=== PATIENT | male | born 1940 | race Caucasian/White ===

== ENCOUNTER 2020-07-24 20:28 | Inpatient (IN) | payer OTHER ==
--- OUTSIDE RECORDS SUMMARY | 2020-07-24 20:31 | XMS REPORT | Summary of Care ---
:1940 Author Organization [facility] Address [address] [place] [id number] Care Team Providers Name Role Phone Unavailable Primary Care Provider Unavailable Reason for Visit Reason Comments LAB Exposure Cough Body Aches Encounter Details Date Type Department Care Team Description 07/18/2020 Laboratory Only [facility] Hamida Dobbs, UNDERCOVER AGENT [address] [facility] [address] [place] [address] Exposure to Medicine - [facility], Adc Fam Pob I SARS-associated [address] [facility] coronaviru s ([address] Drive Dx) [place] [address] Allergies Not on Filedocumented as of this encounter (statuses as of 07/18/2020) Medications Not on filedocumented as of this encounter (statuses as of 07/18/2020) Active Problems Not on filedocumented as of this encounter (statuses as of 07/18/2020) Social History Tobacco Use Types Packs/Day Years Used Date Never Assessed Sex Assigned at Date Recorded Not on file COVID-19 Exposure Response Date Recorded In the last month, have you been in contact with Yes 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 documented as of this encounter Last Filed Vital Signs Not on filedocumented in this encounter Nursing Notes Lauren Bah LVN - 07/18/2020 4:20 PM CSTJeosorio Chavez is a 80 year old male here for COVID Screening with a Nasopharyngeal Swab All droplet and contact precautions taken with appropriate PPE worn while interacting with patient. ? Goggles ? N95 Mask ? Gloves ? Gown RR 17 Pulse Ox 97% Patient educated on plan of care for visit, swabbing technique, risks and benefits of test and length of time to receive results. Verbal consent obtained to perform test. CDC Fact Sheet for Patients nCoV Diagnostic Panel dated 09/29/2019 and Factsheet What to Do if Sick with COVID 19 09/09/19 provided. Patient swabbed per appropriate nasopharyngeal technique, and patient tolerated well. Patient was discharged from the testing clinic in stable condition. 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 documented in this encounter Plan of Treatment Name Type Priority Associated Diagnoses Order S chedule COVID-19 (MOLECULAR LAB Routine Exposure to SARS-asso ciated Ordered: 07/18/2020 TESTING coronavirus NUCLEIC ACID AMPLIFICATION) Health Maintenance Due Date Last Done Comments Depression Screening 1953 DTaP,Tdap,and Td Vaccines (1 - Tdap) 1960 Zoster Recombinant Vaccine (SHINGRIX) (1 of 2) 1991 Medicare Wellness Visit 2006 PNEUMOCOCCAL VACCINES 65+ (1 of 1 - PPSV23) 2006 INFLUENZA VACCINE (#1) 2020 documented as of this encounter Results Not on filedocumented in this encounter Visit Diagnoses Diagnosis Exposure to SARS-associated coronavirus - Primary documented in this encounter Additional Health Concerns Infection Onset Date Last Indicated Resolved Time COVID-19 Rule Out 07/18/2020 07/18/2020 documented as of this encounter Insurance Payer Benefit Plan Subscriber ID Effective Phone Address Typ e / Group Dates AETNA - AETNA [id number] 2020-Prese P O BOX Medic are Adv MANAGED MEDICARE ADV nt [id number] [place] [address] documented as of this encounter
--- OUTSIDE RECORDS SUMMARY | 2020-07-24 20:31 | XMS REPORT | Continuity of Care Document ---
:1940 Author Organization [facility] t Address [address] [place] [address] Care Team Providers Name Role Phone Lab, Fam Pob I Attending Clinician Unavailable Doctor Unassigned, Name Attending Clinician Unavailable Problems This patient has no known problems. Allergies, Adverse Reactions, Alerts This patient has no known allergies or adverse reactions. Medications This patient has no known medications. Procedures This patient has no known procedures. Encounters Start End Encounter Admission Attending Care Care Encounter Source Date/Time Date/Time Type Type Clinicians Facility Department ID 2020-07-18 2020-07-18 Laboratory Lab, [facility] [id number] 16:03:52 16:23:52 Only Fam Pob I Health [id number] [place] [id number] [place] [phone] [address] 2020-07-18 2020-07-18 Letter Doctor CHRIS [id number] 00:00:00 00:00:00 (Out) UnassignedAMARA [id number] [place] [facility] [phone] 044 Results This patient has no known results.
--- OUTSIDE RECORDS SUMMARY | 2020-07-24 20:31 | XMS REPORT | Summary of Care ---
:1940 Author Organization [facility] Address [address] [place] [address] Care Team Providers Name Role Phone Unavailable Primary Care Provider Unavailable Encounter Details Date Type Department Care Team Description 07/18/2020 Letter (Out) [facility] Instap[employer] Message s Doctor Unassigned, No [address] [facility] [place] [phone] [facility] [phone] [place] [address] Allergies Not on Filedocumented as of this encounter (statuses as of 07/18/2020) Medications Not on filedocumented as of this encounter (statuses as of 07/18/2020) Active Problems Not on filedocumented as of this encounter (statuses as of 07/18/2020) Social History Tobacco Use Types Packs/Day Years Used Date Never Assessed Sex Assigned at Date Recorded Not on file documented as of this encounter Last Filed Vital Signs Not on filedocumented in this encounter Plan of Treatment Date Type Specialty Care Team Description 07/18/2020 Laboratory Only [facility] Hamida Lamb, FN P [address] [facility] [address] [place], [place] [id number] Exposure to Lab, Adc Fam Pob I SARS-associated coronavirus (Pr imary Dx) Health Maintenance Due Date Last Done Comments Depression Screening 1953 DTaP,Tdap,and Td Vaccines (1 - Tdap) 1960 Zoster Recombinant Vaccine (SHINGRIX) (1 of 2) 1991 Medicare Wellness Visit 2006 PNEUMOCOCCAL VACCINES 65+ (1 of 1 - PPSV23) 2006 INFLUENZA VACCINE (#1) 2020 documented as of this encounter Results Not on filedocumented in this encounter Additional Health Concerns Infection Onset Date Last Indicated Resolved Time COVID-19 Rule Out 07/18/2020 07/18/2020 documented as of this encounter Insurance Payer Benefit Plan Subscriber ID Effective Phone Address Typ e / Group Dates AETNA - AETNA [id number] 2020-Prese P O BOX Medic are Adv MANAGED MEDICARE ADV nt [id number] [place] [address] documented as of this encounter
[2020-07-24] MEDS ORDERED: ALBUTEROL INHALER 60 PUFF/8 GM IH ONE (22:04)
[2020-07-24 23:37] LABS: Basophils % 0.2 % (0-1.3); Hematocrit 45.5 % (39.6-49.0); Lymphocytes % 9.9 % (15.3-44.8); MPV 8.7 fL (7.6-11.3); RBC Red Blood Cell Count 5.08 M/uL (4.33-5.43)
[2020-07-24 23:39] LABS: Protime INR 1.23
[2020-07-24 23:51] LABS: ALT/SGPT 23 U/L (12-78); AST/SGOT 35 U/L (15-37); Albumin 2.9 g/dL (3.4-5.0); Alkaline Phosphatase 73 U/L (45-117); BUN Blood Urea Nitrogen 22 mg/dL (7-18); Bicarbonate 28 mmol/L (21-32); Bilirubin Direct 0.2 mg/dL (0-0.2); Bilirubin Total 0.6 mg/dL (0.2-1.0); Glucose Level 102 mg/dL (74-106); Magnesium 2.5 mg/dL (1.8-2.4); NT PRO-BNP 506 pg/mL (<450); Potassium 4.1 mmol/L (3.5-5.1); Protein, Total 7.3 g/dL (6.4-8.2); Sodium Level 134 mmol/L (136-145); Troponin (Emerg Dept Use Only) < 0.02 ng/mL (0.0-0.045)
--- NOTE | 2020-07-25 00:04 | EDPHYS ---
Physician Documentation [facility] Name: Ted Chavez Age: 80 yrs Sex: Male : 1940 Arrival Date: 07/24/2020 Time: 20:44 Bed 14 Private MD: Dougie Johnson ED Physician Shmuel Conrad HPI: 07/24 22:07 This 80 yrs old Male presents to ER via Wheelchair with complaints of mh7 Breathing Difficulty, +COVID. 22:07 The patient has shortness of breath at rest, with light activity. mh7 22:07 Onset: The symptoms/episode began/occurred 3 day(s) ago. Duration: The symptoms are mh7 continuous, and are steadily getting worse. The patient's shortness of breath is aggravated by coughing, light activity, is alleviated by nothing. Associated signs and symptoms: Pertinent positives: non-productive cough, Pertinent negatives: chest pain, productive cough, diaphoresis, dizziness, fever, hemoptysis, loss of consciousness, nausea, numbness in extremities, visual changes, vomiting. Severity of symptoms: At their worst the symptoms were moderate yesterday, in the emergency department the symptoms are unchanged. The patient has been recently seen by a physician: the patient's primary care provider. Tested positive for COVID one week ago. Historical: - Allergies: 21:11 Oxycodone; 21:11 Phenergan; 21:11 Tylenol-Codeine #3; - Home Meds: 21:13 Sotalol Oral [Active]; Eliquis oral oral [Active]; - PMHx: 21:13 Cancer; Afib; - PSHx: 21:13 Cholecystectomy; Prostetectomy; - Immunization history:: Adult Immunizations up to date. - Social history:: Smoking status: Patient/guardian denies using. ROS: 22:07 Constitutional: Negative for fever, chills, and weight loss, Eyes: Negative for injury, mh7 pain, redness, and discharge, ENT: Negative for injury, pain, and discharge, Neck: Negative for injury, pain, and swelling, Cardiovascular: Negative for chest pain, palpitations, and edema, Abdomen/GI: Negative for abdominal pain, nausea, vomiting, diarrhea, and constipation, Back: Negative for injury and pain, : Negative for injury, bleeding, discharge, and swelling, MS/Extremity: Negative for injury and deformity, Skin: Negative for injury, rash, and discoloration, Neuro: Negative for headache, weakness, numbness, tingling, and seizure, Psych: Negative for depression, anxiety, suicide ideation, homicidal ideation, and hallucinations, Allergy/Immunology: Negative for hives, rash, and allergies, Endocrine: Negative for neck swelling, polydipsia, polyuria, polyphagia, and marked weight changes, Hematologic/Lymphatic: Negative for swollen nodes, abnormal bleeding, and unusual bruising. Exam: 22:07 Constitutional: This is a well developed, well nourished patient who is awake, alert, mh7 and in no acute distress. Head/Face: Normocephalic, atraumatic. Eyes: Pupils equal round and reactive to light, extra-ocular motions intact. Lids and lashes normal. Conjunctiva and sclera are non-icteric and not injected. Cornea within normal limits. Periorbital areas with no swelling, redness, or edema. ENT: Nares patent. No nasal discharge, no septal abnormalities noted. Tympanic membranes are normal and external auditory canals are clear. Oropharynx with no redness, swelling, or masses, exudates, or evidence of obstruction, uvula midline. Mucous membranes moist. Neck: Trachea midline, no thyromegaly or masses palpated, and no cervical lymphadenopathy. Supple, full range of motion without nuchal rigidity, or vertebral point tenderness. No Meningismus. Chest/axilla: Normal chest wall appearance and motion. Nontender with no deformity. No lesions are appreciated. 22:07 Abdomen/GI: Soft, non-tender, with normal bowel sounds. No distension or tympany. No guarding or rebound. No evidence of tenderness throughout. Back: No spinal tenderness. No costovertebral tenderness. Full range of motion. Skin: Warm, dry with normal turgor. Normal color with no rashes, no lesions, and no evidence of cellulitis. MS/ Extremity: Pulses equal, no cyanosis. Neurovascular intact. Full, normal range of motion. Neuro: Awake and alert, GCS 15, oriented to person, place, time, and situation. Cranial nerves II-XII grossly intact. Motor strength 5/5 in all extremities. Sensory grossly intact. Cerebellar exam normal. Normal gait. Psych: Awake, alert, with orientation to person, place and time. Behavior, mood, and affect are within normal limits. 22:07 Cardiovascular: Rate: normal, Rhythm: irregularly irregular, Pulses: no pulse deficits are appreciated, Heart sounds: normal, normal S1and S2, Edema: is not appreciated, JVD: is not appreciated. 22:07 Respiratory: the patient does not display signs of respiratory distress, Respirations: prolonged exhalation, that is mild, Breath sounds: rales, that are moderate, are scattered, rhonchi, that are mild, are scattered, Respiratory rate: 20 Vital Signs: 20:45 BP 123 / 82; Pulse 81; Resp 20; Temp 98.3; Pulse Ox 95% ; Weight 129.27 kg; Height 6 ar5 ft. 4 in. (193.04 cm); Pain 0/10; 22:00 BP 124 / 85; Pulse 77; Resp 18; Pulse Ox 92% on R/A; wh 23:00 BP 134 / 87; Pulse 79; Resp 18; Pulse Ox 90% on 2 lpm NC; 07/25 00:30 BP 116 / 95; Pulse 84; Resp 18; Pulse Ox 96% on 2 lpm NC; 07/24 20:45 Body Mass Index 34.69 (129.27 kg, 193.04 cm) ar5 MDM: 00:00 Differential diagnosis: Anemia Anxiety Reaction asthma, Bronchitis CHF exacerbation, mh7 Chronic Obstructive Pulmonary Disease Myocardial Infarction pneumonia, pulmonary edema, reactive airway disease. Data reviewed: vital signs, nurses notes, lab test result(s), cardiac enzymes, CBC, electrolytes, urinalysis, EKG, radiologic studies, plain films. Data interpreted: Pulse oximetry: on room air is 88 %. Interpretation: hypoxia. Plan: O2 by NC applied. Counseling: I had a detailed discussion with the patient and/or guardian regarding: the historical points, exam findings, and any diagnostic results supporting the discharge/admit diagnosis, lab results, radiology results, the need for further work-up and treatment in the hospital. Response to treatment: the patient's symptoms have mildly improved after treatment. 00:02 Patient medically screened. [facility] 07/24 21:34 Order name: Basic Metabolic Panel; Complete Time: 23:55 [facility] 07/24 21:34 Order name: CBC with Diff; Complete Time: 23:55 [facility] 07/24 21:34 Order name: LFT's; Complete Time: 23:55 [facility] 07/24 21:34 Order name: Magnesium; Complete Time: 23:55 [facility] 07/24 21:34 Order name: NT PRO-BNP; Complete Time: 23:55 [facility] 07/24 21:34 Order name: PT-INR; Complete Time: 23:55 [facility] 07/24 21:34 Order name: Troponin (emerg Dept Use Only); Complete Time: 23:55 [facility] 07/24 23:57 Order name: Blood Culture Adult (2) [facility] 07/24 23:57 Order name: Lactate; Complete Time: 19:35 [facility] 07/24 23:57 Order name: Procalcitonin; Complete Time: 19:35 [facility] 07/25 00:24 Order name: C-Reactive Protein [facility] 07/25 00:24 Order name: C-Reactive Protein [facility] 07/25 00:24 Order name: Ferritin [facility] 07/25 00:24 Order name: Ferritin [facility] 07/24 21:34 Order name: XRAY Chest (1 view); Complete Time: 19:35 [facility] 07/24 21:34 Order name: EKG; Complete Time: 21:35 [facility] 07/24 21:34 Order name: Cardiac monitoring; Complete Time: 22:09 [facility] 07/24 21:34 Order name: EKG - Nurse/Tech; Complete Time: 22:09 [facility] 07/25 00:24 Order name: CONS Physician Consult [facility] 07/25 00:24 Order name: Heart Healthy [facility] 07/25 00:24 Order name: Lipid Profile [facility] 07/25 00:24 Order name: Lipid Profile [facility] 07/25 10:39 Order name: CORONAVIRUS [facility] 07/25 10:53 Order name: C-Reactive Protein; Complete Time: 19:35 [facility] 07/25 10:53 Order name: Ferritin; Complete Time: 19:35 [facility] 07/25 11:19 Order name: SARS-COV-2 RT PCR; Complete Time: 19:35 [facility] 07/24 21:34 Order name: IV Saline Lock; Complete Time: 22:09 [facility] 07/24 21:34 Order name: Labs collected and sent; Complete Time: 22:09 [facility] 07/24 21:34 Order name: O2 Per Protocol; Complete Time: 22:09 [facility] 07/24 21:34 Order name: O2 Sat Monitoring; Complete Time: : [facility] Administered Medications: 07/24 22:08 Drug: Albuterol HFA Inhaler 2 puffs Route: Inhalation; 07/25 01:04 Follow up: Response: No adverse reaction 00:57 Drug: Rocephin - (cefTRIAXone) 1 grams Route: IVPB; Infused Over: 30 mins; Site: left antecubital; 01:04 Follow up: Response: No adverse reaction; IV Status: Completed infusion 01:00 Drug: Decadron - Dexamethasone 10 mg Route: IVP; Site: left antecubital; 01:04 Follow up: Response: No adverse reaction 01:03 Drug: Zithromax 500 mg Route: IVPB; Infused Over: 1 hrs; Site: left antecubital; 01:04 Follow up: Response: No adverse reaction; IV Status: Infusion continued upon admission Disposition: 07/25/20 00:02 Hospitalization ordered by Dougie Johnson for Inpatient Admission. Preliminary diagnosis are COVID Pneumonia, Hypoxia. - Bed requested for Telemetry/MedSurg (Inpatient). - Status is Inpatient Admission. 2 - Condition is Stable. - Problem is new. - Symptoms have improved. Signatures: Dispatcher [employer] EDMaria Luisa Duncan RN RN Maria Elean Mae Shannon Ennis RN RN [facility] Shmuel Conrad MD MD 7 Corrections: (The following items were deleted from the chart) 00:44 00:02 Hospitalization Ordered by Dougie Johnson MD for Observation. Preliminary diagnosis cg is COVID Pneumonia; Hypoxia. Bed requested for Telemetry/MedSurg (observation). Status is Observation. Condition is Stable. Problem is new. Symptoms have improved. [facility] 01:05 00:44 07/25/2020 00:02 Hospitalization Ordered by Dougie Johnson MD for Observation. 7 Preliminary diagnosis is COVID Pneumonia; Hypoxia. Bed requested for [facility] ER HOLD. Status is Observation. Condition is Stable. Problem is new. Symptoms have improved. 20:15 01:05 07/25/2020 00:02 Hospitalization Ordered by Dougie Johnson MD for Inpatient Admission. Preliminary diagnosis is COVID Pneumonia; Hypoxia. Bed requested for [facility] ER HOLD. Status is Inpatient Admission. Condition is Stable. Problem is new. Symptoms have improved. mh7 20:55 20:15 07/25/2020 00:02 Hospitalization Ordered by Dougie Johnson MD for Inpatient ll2 Admission. Preliminary diagnosis is COVID Pneumonia; Hypoxia. Bed requested for Telemetry/MedSurg (Inpatient). Status is Inpatient Admission. Condition is Stable. Problem is new. Symptoms have improved.
--- NOTE | 2020-07-25 00:04 | ER ---
Nurse's Notes [facility] Name: Ted Chavez Age: 80 yrs Sex: Male : 1940 Arrival Date: 07/24/2020 Time: 20:44 Bed 14 Private MD: Dougie Johnson Diagnosis: COVID Pneumonia;Hypoxia Presentation: 07/24 21:08 Chief complaint: Patient states: was diagnosed Covid Positive last Monday at [facility]. Now C/O SOB and low O2 at [facility] at 86-87% in RA. Coronavirus screen: Client presents with at least one sign or symptom that may indicate coronavirus-19. Standard/surgical mask placed on the client. Provider contacted for isolation considerations. Client reports previous positive COVID test result. Ebola Screen: Patient negative for fever greater than or equal to 101.5 degrees Fahrenheit, and additional compatible Ebola Virus Disease symptoms Patient denies exposure to infectious person. Initial Sepsis Screen: Does the patient meet any 2 criteria? No. Patient's initial sepsis screen is negative. Does the patient have a suspected source of infection? Yes: Other: COvid Positive. Risk Assessment: Do you want to hurt yourself or someone else? Patient reports no desire to harm self or others. Onset of symptoms was July 24, 2020. 21:08 Method Of Arrival: Wheelchair 21:08 Acuity: KJ 3 Triage Assessment: 21:14 Respiratory: Reports shortness of breath cough that is Onset: The symptoms/episode wh began/occurred gradually, the patient reports symptoms have resolved. Historical: - Allergies: 21:11 Oxycodone; 21:11 Phenergan; 21:11 Tylenol-Codeine #3; - Home Meds: 21:13 Sotalol Oral [Active]; Eliquis oral oral [Active]; - PMHx: 21:13 Cancer; Afib; - PSHx: 21:13 Cholecystectomy; Prostetectomy; - Immunization history:: Adult Immunizations up to date. - Social history:: Smoking status: Patient/guardian denies using. Screenin:14 Abuse screen: Denies threats or abuse. Denies injuries from another. Nutritional screening: No deficits noted. Tuberculosis screening: No symptoms or risk factors identified. Fall Risk None identified. Assessment: 21:14 General: Appears in no apparent distress. Behavior is calm, cooperative, appropriate wh for age. Pain: Denies pain. Neuro: Level of Consciousness is awake, alert, obeys commands, Oriented to person, place, time, situation, Appropriate for age. Cardiovascular: Rhythm is regular. Respiratory: Airway is patent Respiratory effort is even, unlabored, Respiratory pattern is regular, symmetrical, Breath sounds with rhonchi bilaterally. GI: Abdomen is non-distended. : No signs and/or symptoms were reported regarding the genitourinary system. EENT: No signs and/or symptoms were reported regarding the EENT system. Derm: Skin is intact, is healthy with good turgor, Skin is pink, warm \T\ dry. normal. Musculoskeletal: Circulation, motion, and sensation intact. 22:45 Reassessment: Patient appears in no apparent distress at this time. No changes from previously documented assessment. Patient and/or family updated on plan of care and expected duration. Pain level reassessed. Patient is alert, oriented x 3, equal unlabored respirations, skin warm/dry/pink. 07/25 00:00 Reassessment: Patient appears in no apparent distress at this time. Patient and/or family updated on plan of care and expected duration. Pain level reassessed. Patient is alert, oriented x 3, equal unlabored respirations, skin warm/dry/pink. 20:22 Reassessment: Patient and/or family updated on plan of care and expected duration. Pain ll2 level reassessed. Patient is alert, oriented x 3, equal unlabored respirations, skin warm/dry/pink. attempted to call report to nurse, advised by phil i'd have to be called back. 20:48 Reassessment: report given to PRINCESS shirley. ll2 Vital Signs: 07/24 20:45 BP 123 / 82; Pulse 81; Resp 20; Temp 98.3; Pulse Ox 95% ; Weight 129.27 kg; Height 6 ar5 ft. 4 in. (193.04 cm); Pain 0/10; 22:00 BP 124 / 85; Pulse 77; Resp 18; Pulse Ox 92% on R/A; wh 23:00 BP 134 / 87; Pulse 79; Resp 18; Pulse Ox 90% on 2 lpm NC; 07/25 00:30 BP 116 / 95; Pulse 84; Resp 18; Pulse Ox 96% on 2 lpm NC; 07/24 20:45 Body Mass Index 34.69 (129.27 kg, 193.04 cm) ar5 ED Course: 07/24 20:44 Patient arrived in ED. es 20:44 Dougie Johnson MD is Private Physician. es 20:52 Maria Elena Mae is Primary Nurse. 20:58 Shmuel Conrad MD is Attending Physician. 7 21:10 Triage completed. 21:15 Patient has correct armband on for positive identification. Placed in gown. Bed in low wh position. Call light in reach. Side rails up X 1. phototypesetting equipment monitor on. Pulse ox on. NIBP on. 21:15 Arm band placed on right wrist. 21:48 XRAY Chest (1 view) In Process Unspecified. EDKS 07/25 00:01 Dougie Johnson MD is Hospitalizing Provider. 7 01:05 No provider procedures requiring assistance completed. Patient admitted, IV remains in place. Administered Medications: 07/24 22:08 Drug: Albuterol HFA Inhaler 2 puffs Route: Inhalation; 07/25 01:04 Follow up: Response: No adverse reaction 00:57 Drug: Rocephin - (cefTRIAXone) 1 grams Route: IVPB; Infused Over: 30 mins; Site: left antecubital; 01:04 Follow up: Response: No adverse reaction; IV Status: Completed infusion 01:00 Drug: Decadron - Dexamethasone 10 mg Route: IVP; Site: left antecubital; 01:04 Follow up: Response: No adverse reaction 01:03 Drug: Zithromax 500 mg Route: IVPB; Infused Over: 1 hrs; Site: left antecubital; 01:04 Follow up: Response: No adverse reaction; IV Status: Infusion continued upon admission Outcome: 00:02 Decision to Hospitalize by Provider. 7 01:05 Admitted to ER Hold. Please see [facility] for further documentation. 01:05 Condition: stable 01:05 Instructed on the need for admit. 20:55 Patient left the ED. ll2 Signatures: Dispatcher [employer] EDKS Mercedes Rivers Maria Elena Mae Zuri Jose ar5 Shannon Ennis RN RN ll2 Shmuel Conrad MD MD mh7 Corrections: (The following items were deleted from the chart) 02:01 07/24 21:14 Respiratory: Airway is patent Respiratory effort is even, unlabored, wh Respiratory pattern is regular, symmetrical, Breath sounds are clear bilaterally. wh
[2020-07-25] MEDS ORDERED: ONDANSETRON 4 MG/2 ML VIAL IV PRN (00:11)
[2020-07-25] MEDS ORDERED: AZITHROMYCIN 500 MG INJ IVPB ONE (00:21)
[2020-07-25] MEDS ORDERED: NA CHLORIDE 0.9% 250 ML ONE (00:22)
[2020-07-25] MEDS ORDERED: CEFTRIAXONE/SWI 1gm 1 GM/10 ML SYR ONE (00:22)
[2020-07-25] MEDS ORDERED: dexAMETHasone 10 MG/ML VIAL ONE (00:22)
[2020-07-25 01:53] VITALS: BMI 34.7
[2020-07-25] MEDS ORDERED: VITAMIN D 1000 UNIT TAB ONE (08:55)
[2020-07-25] MEDS ORDERED: ZINC SULFATE 220 MG CAP ONE (08:55)
[2020-07-25] MEDS ORDERED: ASCORBIC ACID 500 MG TABLET ONE ×2 (08:56→13:37)
[2020-07-25] MEDS ORDERED: METHYLPREDNISOLONE 40 MG INJ ONE ×2 (08:56→13:37)
[2020-07-25] MEDS: METHYLPREDNISOLONE 40 MG INJ IV SCH ×3 (09:00→22:06)
[2020-07-25] MEDS: ASCORBIC ACID 500 MG TABLET PO SCH ×3 (09:00→22:07)
[2020-07-25] MEDS: VITAMIN D 1000 UNIT TAB PO SCH (09:00)
[2020-07-25] MEDS: ZINC SULFATE 220 MG CAP PO SCH (09:00)
[2020-07-25] MEDS: SOTALOL HCL 80 MG TAB PO SCH ×2 (09:44→22:07)
[2020-07-25] MEDS: APIXABAN 5 MG TABLET PO SCH ×2 (10:00→22:07)
[2020-07-25] MEDS ORDERED: APIXABAN 5 MG TABLET ONE (10:24)
[2020-07-25 10:53] LABS: C-Reactive Protein 64.6 mg/L (<3.00); Ferritin 264.3 ng/mL (26-388)
[2020-07-25] MEDS: AZITHROMYCIN IV 250 MG in NA CHLORIDE 0.9% 250 ML IVPB SCH (13:00)
--- NOTE | 2020-07-25 13:03 | HP ---
Date of Admission: 07/25/2020 LAXMI/MODL Voice ID: [id number]
--- NOTE | 2020-07-25 13:27 | HP ---
Date of Admission: 07/25/2020 Chief Complaint: Shortness of breath. History Of Present Illness: This is a 80-year-old very pleasant male patient who got exposed to COVID-19 and acquired this infection. He had his COVID-19 test done on July 18, 2020, and it came back positive. He started to have symptoms about 14-15 days ago. He was evaluated via tele visit on July 21, 2020 and at that time, he had reported his oxygen saturation at home was around 96% or higher. He had cough, congestion, fatigue, weakness, diarrhea, and loss of sense of smell and taste. He was prescribed Z-Juvenal and prednisone and he started to take that. Today will be day #4 of his prednisone. He was doing fine until yesterday evening. He says that his oxygen saturation started to drop into range of 75%-77% associated with complaints of shortness of breath, so he came into emergency room. After he was evaluated he was admitted to the hospital with COVID-19 pneumonia. When I saw him this morning, he was in the emergency room lying in bed not in distress. Feeling better since he came to ER after treatment provided to him so far. Allergies: TO CODEINE CAUSING NAUSEA, VOMITING, XARELTO CAUSING GI BLEEDING, PHENERGAN, DETAILS UNKNOWN, AND OXYCODONE DETAILS UNKNOWN. Medications: At home, he takes Zithromax 250 mg daily, prednisone tapering dose, rosuvastatin 5 mg 2 times a week, Eliquis 5 mg 2 times a day, sotalol 80 mg he takes half a tablet 3 times a day. Review of Systems: Respiratory: As mentioned above. All other systems reviewed and negative. Past Medical History: Significant for type 2 diabetes mellitus, coronary artery disease, atrial fibrillation, hyperlipidemia, prostate cancer, leg edema. Past Surgical History: Tonsillectomy, prostatectomy, cholecystectomy, shoulder surgery. Family History: Father had diabetes. Mother, Alzheimer disease. Social History: Prior history of smoking not at present time. Use of alcohol negative. Physical Examination: Vital Signs: Height 6 feet 4 inches, weight 285 pounds, temperature 97.4, pulse 92, respiratory rate 20, blood pressure 124/78, oxygen saturation 91%. General: Awake, alert, oriented, not in distress. HEENT: Head atraumatic, normocephalic. Conjunctivae nonerythematous. Sclerae white. Mouth, no thrush or edema noted. Ears/Nose, no mass, lesion, discharge noted. Neck: Supple. No JVD, lymph nodes, bruit, thyromegaly noted. Lungs: Minimum basal rales noted in both lung moura. The patient not using any accessory muscles. Heart: Normal heart sounds, no murmur or gallop. Abdomen: Soft, bowel sounds normal. No guarding, rigidity, tenderness, mass, hepatosplenomegaly, distention, or bruit noted. Extremities: No leg edema. No calf tenderness. Skin: No rash, ulcer, cellulitis. Lymphatics: No lymph node enlargement in neck, supraclavicular, infraclavicular region. Neuro: No focal neurological deficit. Chest: Unremarkable. External Genitalia: Deferred. Rectal: Deferred. Laboratory Data: White count 10.1, hemoglobin 15.4, platelets 256, INR 1.23. Sodium 134, potassium 4.1, chloride 101, bicarb 28, BUN 22, creatinine 1.13, glucose 102, magnesium 2.5. Liver function tests unremarkable. Troponin less than 0.02. Procalcitonin less than 0.05. Lactic acid 1.7. Ferritin 264. CRP 64.6. Impression: 1. COVID-19 infection. 2. COVID-19 pneumonia. 3. Acute respiratory failure with hypoxia. 4. Hyponatremia. 5. Atrial fibrillation, paroxysmal. 6. Chronic anticoagulation therapy. 7. Hyperlipidemia. 8. Coronary artery disease. 9. Mixed hyperlipidemia. 10. Prostate cancer. Plan: We will go ahead and admit the patient to hospital for further evaluation and management of this problem. Patient is appropriate for inpatient and is expected to spend 2 midnights in hospital. We will continue home medications per order. We will go ahead and continue oxygen per nasal cannula at this time. He is maintaining adequate oxygenation. We will give him IV steroids and IV Zithromax was started. Continue Eliquis and pulmonary consultation was requested from Dr. Gaspar and I have contacted him requesting initiation of remdesivir therapy. Details and plan of treatment discussed with the patient. LAXMI/MODL Voice ID: [id number] MTDD
--- NOTE | 2020-07-25 13:51 | RAD REPORT ---
EXAM DESCRIPTION: RAD - Chest Single View - 07/24/2020 9:48 pm CLINICAL HISTORY: SOB COMPARISON: None. FINDINGS: Single view of the chest is submitted. Cardiac silhouette is enlarged. There is poorly defined consolidation at each lung base. There is mil d pulmonary vascular engorgement. IMPRESSION: Cardiomegaly with bilateral consolidations. Electronically signed by: Ryan Beckham 07/24/2020 10:31 PM QUANTITATIVE STRATEGY ANALYST Due to temporary technical issues with the PACS/Fluency reporting system, reports are being signed by the in house radiologists without review as a courtesy to insure prompt reporting. The interpreting radiologist is fully responsible for the content of the report.
[2020-07-25] MEDS ORDERED: Remdesivir 200 MG in NA CHLORIDE 0.9% 250 ML IV ONE (17:00)
[2020-07-25] MEDS ORDERED: SOTALOL HCL 80 MG TAB ONE (22:19)
[2020-07-26 07:14] LABS: Albumin 2.6 g/dL (3.4-5.0); Bilirubin Total 0.5 mg/dL (0.2-1.0); C-Reactive Protein 52.8 mg/L (<3.00); Ferritin 289.8 ng/mL (26-388); Potassium 3.5 mmol/L (3.5-5.1); Protein, Total 6.9 g/dL (6.4-8.2)
[2020-07-26] MEDS ORDERED: GLUCAGON 1 MG/VIAL IM PRN (08:44)
[2020-07-26] MEDS ORDERED: D50W 25 GM/50 ML SYRINGE IV PRN (08:44)
[2020-07-26] MEDS: SOTALOL HCL 80 MG TAB PO SCH ×2 (09:00→21:49)
[2020-07-26] MEDS: THIAMINE HCL 100 MG TABLET PO SCH (09:43)
[2020-07-26] MEDS: ZINC SULFATE 220 MG CAP PO SCH (09:43)
[2020-07-26] MEDS: VITAMIN D 1000 UNIT TAB PO SCH (09:43)
[2020-07-26] MEDS: METHYLPREDNISOLONE 40 MG INJ IV SCH ×3 (09:44→21:50)
[2020-07-26] MEDS: APIXABAN 5 MG TABLET PO SCH ×2 (09:44→21:49)
[2020-07-26] MEDS: ASCORBIC ACID 500 MG TABLET PO SCH ×3 (09:44→21:49)
[2020-07-26] MEDS: Remdesivir 100 MG in NA CHLORIDE 0.9% 250 ML IV SCH (09:44)
[2020-07-26] MEDS: INSULIN -REGULAR HUMAN 50 UNIT/0.5 ML ML SQ SCH ×3 (11:30→21:00)
--- NOTE | 2020-07-26 11:57 | RAD REPORT ---
EXAM DESCRIPTION: RAD - Chest Single View - 07/26/2020 6:53 am CLINICAL HISTORY: covid pneumonia Chest pain. COMPARISON: Chest Single View dated 07/24/2020; Chest Pa And Lat (2 Views) dated 04/18/2018; CHEST PA A ND LAT 2 VIEW dated 09/17/2014; CHEST SINGLE VIEW dated 03/14/2014 FINDINGS: Portable technique limits examination quality. Bilateral pulmonary opacities are noted, greater on the left, and mildly worsened since the comparati ve radiograph. The heart is moderately enlarged. No displaced fractures. IMPRESSION: Mild worsening in bilateral pulmonary opacities noted, greater on the left, since compar ative radiograph.
[2020-07-26] MEDS: AZITHROMYCIN IV 250 MG in NA CHLORIDE 0.9% 250 ML IVPB SCH (12:17)
--- NOTE | 2020-07-26 15:15 | P.CNS ---
Date of Consult: 07/26/20 Reason for Consult: REsp failure Chief Complaint: SOB History of Present Illness: AGe 80 Failed OP Tx for COVID aW Inc SOB . Doign well. Sat's satisfactory wants to go home Allergies promethazine HCl [From Phenergan] Allergy (Verified 07/25/20 01:56) Shortness of breath acetaminophen [From Tylenol-Codeine #3] Adverse Reaction (Verified 07/25/20 01:56) Nausea/Vomiting codeine phosphate [From Tylenol-Codeine #3] Adverse Reaction (Verified 07/25/20 01:56) Nausea/Vomiting oxycodone [Oxycodone] Adverse Reaction (Verified 07/25/20 01:56) Nausea/Vomiting Home Medications: Sotalol HCl [Betapace*] 80 mg PO BID 6AM 6PM #60 tab 03/17/14 Apixaban [Eliquis] 5 mg PO BID 07/25/20 - Past Medical/Surgical History Diabetic: No -: history of afibb -: history of prostate cancer -: Cancer -: Cholecystectomy -: Prostate Surgery - Social History Alcohol use: Yes CD- Drugs: No Caffeine use: Yes Place of Residence: Home Review of Systems 10-point ROS is otherwise unremarkable Respiratory: Shortness of Breath Physical Examination Temp Pulse Resp BP Pulse Ox 97.6 F 89 24 H 120/74 90 L 07/26/20 12:00 07/26/20 12:00 07/26/20 12:00 07/26/20 12:00 07/26/20 12:00 General: Alert, In no apparent distress, Oriented x3 Respiratory: Clear to auscultation bilaterally Cardiovascular: No edema, Irregular heart rate/rhythm - Problems (1) Pneumonia due to 2019 novel coronavirus Current Visit: Yes Status: Acute Plan: Age 80 failue OP tx for COVID penumonia. AW worseing SOB. Doign better . CW steroids set up fron honme O2 poss DC am. Remdesmir ordered Bilat changes on CXRY L>R. Poss DC home am. Set up for home O2Pt lawanda Eliquis for AFIB
--- NOTE | 2020-07-26 17:33 | PN ---
Date of Progress Note: 07/26/2020 Subjective: Patient was seen this morning for followup. No new complaints or problems reported by h im. Overall, he feels better today than yesterday and day before yesterday. Objective: Vital Signs: Reviewed. HEENT: Unremarkable. Lungs: Clear to auscultation. Heart: Sounds normal. Abdomen: Soft. Bowel sounds normal. No guarding, rigidity, tenderness, or distention. Extremities: No leg edema. Laboratory Data: Sodium 136, potassium 3.5, chloride 103, bicarb 24, BUN 21, creatinine 1.01, glucos e 180, ferritin 289, CRP 52.8. Liver function tests normal. Impression: 1.COVID-19 infection. 2.COVID-19 pneumonia. 3.Acute respiratory failure with hypoxia. 4.Atrial fibrillation. 5.Type 2 diabetes mellitus. Plan: We will continue current medication. We will start monitoring his blood sugar and put him on sliding scale insulin. Continue IV steroid, remdesivir, oxygen support, and details were discussed w cait Gaspar and he is going to try to make arrangements for patient to go home with oxygen. Pos sible discharge to go home tomorrow depending on his condition and details were discussed with the marilu roberto. I will call his and communicate with her today also. Yesterday, I did call the patient's and details were discussed with her yesterday. LAXMI/MODL Voice ID: [id number] Report ID: [id number]
[2020-07-27 04:22] LABS: Albumin 2.5 g/dL (3.4-5.0); Bilirubin Total 0.4 mg/dL (0.2-1.0); C-Reactive Protein 30.9 mg/L (<3.00); Ferritin 282.4 ng/mL (26-388); Potassium 3.7 mmol/L (3.5-5.1); Protein, Total 6.7 g/dL (6.4-8.2)
--- NOTE | 2020-07-27 07:23 | EKG ---
Test Date: 2020-07-24 Test Time: 21:56:52 Aquaculture Worker: DAVID MEASUREMENT RESULTS: Intervals: Rate: 85 TX: QRSD: 90 QT: 388 QTc: 461 [place]: P: TX: QRS: -32 T: 6 INTERPRETIVE STATEMENTS: Atrial fibrillation Left axis deviation Low voltage QRS Cannot rule out Anterior infarct, age undetermined Abnormal ECG Compared to ECG 03/15/2014 01:39:55 Left-axis deviation now present Low QRS voltage now present Myocardial infarct finding now present Sinus bradycardia no longer present Ventricular premature complex(es) no longer present T-wave abnormality no longer present Electronically Signed On 07-27-20 07:20:41 TOOL MAINTENANCE WORKER by Christiano Rosas
[2020-07-27] MEDS: INSULIN -REGULAR HUMAN 50 UNIT/0.5 ML ML SQ SCH ×4 (07:30→21:27)
--- NOTE | 2020-07-27 07:57 | RAD REPORT ---
EXAM DESCRIPTION: [place] Single View07/27/2020 7:01 am CLINICAL HISTORY: Chest pain COMPARISON: July 26 FINDINGS: No significant change in the bilateral pulmonary opacities probably pneumonia. Heart is m ildly enlarged
[2020-07-27] MEDS: THIAMINE HCL 100 MG TABLET PO SCH (08:50)
[2020-07-27] MEDS: VITAMIN D 1000 UNIT TAB PO SCH (08:50)
[2020-07-27] MEDS: ZINC SULFATE 220 MG CAP PO SCH (08:50)
[2020-07-27] MEDS: ASCORBIC ACID 500 MG TABLET PO SCH ×3 (08:50→21:17)
[2020-07-27] MEDS: AZITHROMYCIN IV 250 MG in NA CHLORIDE 0.9% 250 ML IVPB SCH (08:51)
[2020-07-27] MEDS: METHYLPREDNISOLONE 40 MG INJ IV SCH (09:00)
[2020-07-27] MEDS: APIXABAN 5 MG TABLET PO SCH ×2 (09:34→21:17)
[2020-07-27] MEDS: SOTALOL HCL 80 MG TAB PO SCH ×2 (09:34→21:17)
[2020-07-27] MEDS: METHYLPREDNISOLONE 125 MG INJ IV SCH ×3 (10:48→21:18)
[2020-07-27] MEDS: Remdesivir 100 MG in NA CHLORIDE 0.9% 250 ML IV SCH (14:22)
[2020-07-28 00:10] VITALS: O2SAT 90
[2020-07-28 03:57] LABS: Absolute Lymphocytes (CBC) 0.6 K/uL (0.7-4.9); Basophils % 0.3 % (0-1.3); Hematocrit 46.1 % (39.6-49.0); Lymphocytes % 5.7 % (15.3-44.8); MPV 8.3 fL (7.6-11.3); RBC Red Blood Cell Count 5.18 M/uL (4.33-5.43)
[2020-07-28 04:09] LABS: Albumin 2.5 g/dL (3.4-5.0); Bilirubin Total 0.4 mg/dL (0.2-1.0); C-Reactive Protein 15.5 mg/L (<3.00); Ferritin 246.3 ng/mL (26-388); Potassium 3.9 mmol/L (3.5-5.1); Protein, Total 6.4 g/dL (6.4-8.2)
[2020-07-28 05:36] LABS: Blood Morphology Comment NOT SEEN (NOT SEEN); Platelet Estimate ADEQ
--- NOTE | 2020-07-28 07:27 | PN ---
Date of Progress Note: 07/27/2020 Subjective: The patient was seen this morning for followup. No new complaints or problems reported by patient. He was evaluated by televisit that included audio and video component. He denies any ch est pain, nausea, vomiting. Has a couple of loose diarrhea stool in 24 hours. No abdominal pain. H e remains on oxygen per nasal cannula, maintaining adequate oxygenation. Nursing staff did not repor t any complaints either. Objective: Vital Signs: Reviewed. Laboratory Data: Sodium 136, potassium 3.7, chloride 102, bicarb 27, BUN 23, creatinine 0.92, glucos e level 176. Liver function tests unremarkable. CRP 30.90 and it is improving on a day-to-day basis . Ferritin level 282.4. Impression: 1.COVID-19 infection. 2.COVID-19 pneumonia. 3.Acute respiratory failure with hypoxia. 4.Atrial fibrillation. Plan: We will continue current anticoagulation therapy. Continue IV steroids, oxygen supplement. H ome medication including Eliquis and sotalol. I will see him tomorrow for followup and details were discussed with the patient. I also discussed details with the patient's , who was contacted in t he evening time. LAXMI/MODL Voice ID: [id number] Report ID: [id number]
--- NOTE | 2020-07-28 08:38 | RAD REPORT ---
EXAM DESCRIPTION: RAD - Chest Single View - 07/28/2020 8:25 am CLINICAL HISTORY: covid pneumonia COMPARISON: July 27 TECHNIQUE: AP portable chest image was obtained 07/28/2020 8:25 am . FINDINGS: Lung volumes are low. Bilateral airspace opacification is present left greater than right. Pattern is not substantially different from comparison. Heart size is upper normal. Vasculature is p rominent but unchanged. No measurable pleural effusion and no pneumothorax. No acute bony abnormality seen. No acute aortic findings suspected. IMPRESSION: Stable chest.
[2020-07-28] MEDS: AZITHROMYCIN IV 250 MG in NA CHLORIDE 0.9% 250 ML IVPB SCH (08:44)
[2020-07-28] MEDS: INSULIN -REGULAR HUMAN 50 UNIT/0.5 ML ML SQ SCH ×3 (08:44→16:30)
[2020-07-28] MEDS: ASCORBIC ACID 500 MG TABLET PO SCH ×2 (08:45→14:58)
[2020-07-28] MEDS: METHYLPREDNISOLONE 125 MG INJ IV SCH ×2 (08:45→14:58)
[2020-07-28] MEDS: VITAMIN D 1000 UNIT TAB PO SCH (08:45)
[2020-07-28] MEDS: THIAMINE HCL 100 MG TABLET PO SCH (08:45)
[2020-07-28] MEDS: APIXABAN 5 MG TABLET PO SCH (08:45)
[2020-07-28] MEDS: SOTALOL HCL 80 MG TAB PO SCH (08:45)
[2020-07-28] MEDS: ZINC SULFATE 220 MG CAP PO SCH (08:45)
[2020-07-28] MEDS: Remdesivir 100 MG in NA CHLORIDE 0.9% 250 ML IV SCH (09:44)
[2020-07-28 12:05] VITALS: BP 130/77; TEMP 97.7
--- NOTE | 2020-07-28 12:12 | P.PN ---
Subjective Date of Service: 07/28/20 Chief Complaint: Pneumonia due to thayer virus Subjective: Improving (Patient is improving shortness of breath is improved still experiences desat on exertion able to tolerate nasal cannula oxygen) Review of Systems General: Weakness Respiratory: Shortness of Breath Physical Examination - Vital Signs Temperature: 97.7 F Blood Pressure: 130/77 Pulse: 75 Respirations: 21 Pulse Ox (%): 92 Assessment & Plan - Problems (Diagnosis) (1) Pneumonia due to 2019 novel coronavirus Current Visit: Yes Status: Acute Plan: Patient is clinically improving sat is 91% on 4-5 L plan for discharge recommend prednisone 20 b.i.d. for at least a week before tapering continue with full anticoagulation Dc all antibiotics no clinical evidence of sepsis patient is receiving is last doseof Remdemir today
[2020-07-28] MEDS ORDERED: D50W 25 GM/50 ML VIAL IV PRN (14:31)
--- NOTE | 2020-08-27 08:49 | DS ---
Date of Discharge: 07/28/2020 Disposition: Discharged to go home. Physical Examination: HEENT: Unremarkable. Lungs: Clear to auscultation. Heart: Sounds normal. Abdomen: Soft. Bowel sounds normal. No guarding, rigidity, tenderness, or distention. Extremities: No leg edema. Hospital Course: This is a 80-year-old pleasant male patient who was admitted to the hospital with COVID-19 infection and COVID-19 pneumonia. Please see dictated H and P for more information. After patient was evaluated in the ER, he was admitted to the hospital. Dr. Gaspar from Pulmonary was consulted. The patient was treated during this hospitalization with oxygen replacement therapy and IV steroid. His oxygen requirement improved over period of this hospitalization and his symptoms improved also from COVID-19 related infection. His initial white count was 10.1, hemoglobin 15.4, platelets 256. His initial CRP was 64.6 when he came in and last CRP was 15.5. His last chemistry, sodium 137, potassium 3.9, chloride 103, bicarb 28, BUN 26, creatinine 0.93, glucose 192. Liver function tests unremarkable. The patient was on nasal cannula oxygen and he did receive remdesivir along with IV steroids and oxygen replacement therapy. Overall, once condition improved, he was discharged to go home in stable condition with following discharge medication instruction. Final Diagnoses: 1. COVID-19 infection. 2. COVID-19 pneumonia. 3. Acute respiratory failure with hypoxia. 4. Hyponatremia. 5. Paroxysmal atrial fibrillation. 6. Chronic anticoagulation therapy. 7. Mixed hyperlipidemia. 8. Coronary artery disease. 9. Prostate cancer. Discharge Medications And Instructions: 1. Continue prior home medications. 2. Start prednisone as prescribed and prescription was sent to pharmacy from my office. 3. Follow up at my office in 1 week. 4. The patient to take prednisone as prescribed as below, the prednisone 10 mg tablet, take 2 tablets by mouth 2 times a day for 1 week, then 2 tablets by mouth daily for 1 week, then 1 tablet by mouth daily for 1 week, then 1/2 tablet by mouth daily for 1 week, then stop, and the patient to take it with food. 5. Use oxygen as prescribed all the time. LAXMI/MODL Voice ID: [id number] Report ID: [id number] MTDD
== END 2020-07-28 17:51 | disposition home or self-care (01) | DRG 177 ==
LOC: ER 20:28 → ERHOLD 07-25 00:07 → 4TH 07-25 20:29
PROVIDERS: ADMIT Internal Medicine; ATTEND Internal Medicine
PROC: XW033E5 Introduction of Remdesivir Anti-infective into Peripheral Vein, Percutaneous Approach, New Technology Group 5 (ICD-10-PCS; principal; 2020-07-25)
DX: U07.1 COVID-19 (principal); J12.82 Pneumonia due to coronavirus disease 2019; J96.01 Acute respiratory failure with hypoxia; E87.1 Hypo-osmolality and hyponatremia; I48.0 Paroxysmal atrial fibrillation; E11.9 Type 2 diabetes mellitus without complications; E78.2 Mixed hyperlipidemia; I25.10 Atherosclerotic heart disease of native coronary artery without angina pectoris; Z88.5 Allergy status to narcotic agent; Z88.8 Allergy status to other drugs, medicaments and biological substances; Z79.01 Long term (current) use of anticoagulants; Z79.899 Other long term (current) drug therapy; Z90.49 Acquired absence of other specified parts of digestive tract; Z85.46 Personal history of malignant neoplasm of prostate; Z23 Encounter for immunization
CPT/HCPCS: 36415; 71045; 80048; 80053; 80076; 82728; 82947; 83605; 83735; 83880; 84145; 84484; 85025; 85610; 86140; 87040; 93005; 94760; 96374; 96375; 99285; J0456; J0696; J1100; J2920; J2930; J7050; U0003

== ENCOUNTER 2020-07-31 14:59 | Inpatient (IN) | payer OTHER ==
--- OUTSIDE RECORDS SUMMARY | 2020-07-31 15:04 | XMS REPORT | Continuity of Care Document ---
:1940 Author Organization [facility] t Address [address] [place] [address] Care Team Providers Name Role Phone Lab, [...] Facility Department ID 2020-07-18 2020-07-18 Laboratory Lab, [facility] [id number] 16:03:52 16:23:52 Only Fam [facility] [id number] [place] [id number] [place] [phone] [address] 2020-07-18 2020-07-18 Letter Doctor CHRIS [id number] 00:00:00 00:00:00 (Out) UnassignedAMARA [id number] [place] [facility] [id number] [phone] [phone] Results This patient has no known results.
[2020-07-31 15:36] LABS: Arterial Blood Carboxyhemoglob 0.9 % (0-1.5); Blood Gas Oxyhemoglobin 91.6 % (94-97); Blood O2 Saturation 92.9 % (92-98.5)
[2020-07-31 15:39] LABS: Absolute Lymphocytes (CBC) 0.5 K/uL (0.7-4.9); Basophils % 0.3 % (0-1.3); Hematocrit 48.8 % (39.6-49.0); Lymphocytes % 3.5 % (15.3-44.8); MPV 7.8 fL (7.6-11.3)
--- NOTE | 2020-07-31 15:47 | RAD REPORT ---
EXAM DESCRIPTION: RAD - Chest Single View - 07/31/2020 3:28 pm CLINICAL HISTORY: SOB Chest pain. COMPARISON: Chest Single View dated 07/28/2020; Chest Single View dated 07/27/2020; Chest Single View dated 07/26/2020; Chest Single View dated 07/24/2020 FINDINGS: Portable technique limits examination quality. Asymmetric bilateral pulmonary opacities are noted, greater on the left, compatible with pneumonia. O verall, degree of infiltrate is stable since preceding study. The heart is normal in size. No displac ed fractures. IMPRESSION: Asymmetric bilateral pulmonary opacities, greater on the left, appear stable since cipriano rative chest radiograph.
[2020-07-31 15:52] LABS: Protime INR 1.77
[2020-07-31 15:54] LABS: ALT/SGPT 33 U/L (12-78); AST/SGOT 34 U/L (15-37); Albumin 2.4 g/dL (3.4-5.0); Alkaline Phosphatase 72 U/L (45-117); BUN Blood Urea Nitrogen 29 mg/dL (7-18); Bicarbonate 27 mmol/L (21-32); Bilirubin Direct 0.4 mg/dL (0-0.2); Bilirubin Total 0.9 mg/dL (0.2-1.0); Ferritin 427.7 ng/mL (26-388); Glucose Level 178 mg/dL (74-106); Lipase 681 U/L (73-393); Potassium 3.5 mmol/L (3.5-5.1); Protein, Total 6.5 g/dL (6.4-8.2); Sodium Level 138 mmol/L (136-145); Troponin (Emerg Dept Use Only) < 0.02 ng/mL (0.0-0.045)
--- NOTE | 2020-07-31 16:03 | EDPHYS ---
Physician Documentation [facility] Name: Ted Chavez Age: 80 yrs Sex: Male : 1940 Arrival Date: 07/31/2020 Time: 15:00 Bed 4 Private MD: ED Physician Daquan Vidal HPI: 08/01 07:30 This 80 yrs old Male presents to ER via EMS with complaints of Shortness Of kdr Breath. 07:30 The patient has shortness of breath at rest. Onset: The symptoms/episode began/occurred kdr gradually, 3 day(s) ago. Duration: The symptoms are continuous, and are steadily getting worse. The patient's shortness of breath is aggravated by exertion, light activity, talking. Associated signs and symptoms: The patient has no apparent associated signs or symptoms. Severity of symptoms: At their worst the symptoms were moderate incapacitating in the emergency department the symptoms are unchanged. The patient has experienced similar episodes in the past, chronically. The patient has been recently been admitted at [facility], was discharged earlier this week. The patient was discharged three days ago and per family, has been steadily getting worse since. When EMS arrived, they noted that the saturations was in the 60's and with aggressive oxygenation, they were able to get it up to 70's to 80's.. Historical: - Allergies: 07/31 15:22 Oxycodone; sv 15:22 Phenergan; sv 15:22 Tylenol-Codeine #3; sv - Home Meds: 21:33 Eliquis Oral [Active]; sotalol Oral [Active]; mg2 - PMHx: 15:22 AFIB; Cancer; sv - PSHx: 15:22 Cholecystectomy; Prostetectomy; sv - Immunization history:: Adult Immunizations up to date. - Social history:: Smoking status: . ROS: 08/01 07:30 Constitutional: Negative for fever, chills, and weight loss, Eyes: Negative for injury, kdr pain, redness, and discharge, ENT: Negative for injury, pain, and discharge, Neck: Negative for injury, pain, and swelling, Cardiovascular: Negative for chest pain, palpitations, and edema, Abdomen/GI: Negative for abdominal pain, nausea, vomiting, diarrhea, and constipation, Back: Negative for injury and pain, : Negative for injury, bleeding, discharge, and swelling, MS/Extremity: Negative for injury and deformity, Skin: Negative for injury, rash, and discoloration, Neuro: Negative for headache, weakness, numbness, tingling, and seizure activity. Psych: Negative for depression, anxiety, suicide ideation, homicidal ideation, and hallucinations, Allergy/Immunology: Negative for hives, rash, and allergies, Endocrine: Negative for neck swelling, polydipsia, polyuria, polyphagia, and marked weight changes, Hematologic/Lymphatic: Negative for swollen nodes, abnormal bleeding, and unusual bruising. Respiratory: Positive for cough, with no reported sputum, dyspnea on exertion, shortness of breath, Negative for hemoptysis, orthopnea, pleurisy, sputum production, wheezing. Exam: 07:30 Constitutional: This is a well developed, well nourished patient who is awake, alert, kdr and in no acute distress. Head/Face: Normocephalic, atraumatic. Eyes: Pupils equal round and reactive to light, extra-ocular motions intact. Lids and lashes normal. Conjunctiva and sclera are non-icteric and not injected. Cornea within normal limits. Periorbital areas with no swelling, redness, or edema. Neck: Trachea midline, no thyromegaly or masses palpated, and no cervical lymphadenopathy. Supple, full range of motion without nuchal rigidity, or vertebral point tenderness. No Meningismus. Chest/axilla: Normal chest wall appearance and motion. Nontender with no deformity. No lesions are appreciated. Cardiovascular: Regular rate and rhythm with a normal S1 and S2. No gallops, murmurs, or rubs. Normal PMI, no JVD. No pulse deficits. Abdomen/GI: Soft, non-tender, with normal bowel sounds. No distension or tympany. No guarding or rebound. No evidence of tenderness throughout. Back: No spinal tenderness. No costovertebral tenderness. Full range of motion. Skin: Warm, dry with normal turgor. Normal color with no rashes, no lesions, and no evidence of cellulitis. MS/ Extremity: Pulses equal, no cyanosis. Neurovascular intact. Full, normal range of motion. Neuro: Awake and alert, GCS 15, oriented to person, place, time, and situation. Cranial nerves II-XII grossly intact. Motor strength 5/5 in all extremities. Sensory grossly intact. Cerebellar exam normal. Normal gait. Psych: Awake, alert, with orientation to person, place and time. Behavior, mood, and affect are within normal limits. 07:30 Respiratory: mild respiratory distress is noted, moderate respiratory distress is noted, Respirations: labored breathing, that is mild, Breath sounds: rales, that are mild, are heard diffusely. Vital Signs: 07/31 15:00 BP 118 / 86; Pulse 78; Resp 27; Temp 96.9; Pulse Ox 70% 4 lpm ; Pain 0/10; sv 15:48 BP 106 / 81; Pulse 79; Resp 32; Pulse Ox 93% on 100% BiPAP; sv 16:02 Weight 129 kg; Height 6 ft. 4 in. (193.04 cm); sv 16:48 BP 128 / 87; Pulse 79; Resp 31; Pulse Ox 91% on 100% BiPAP; sv 17:15 BP 106 / 77; Pulse 80; Resp 31; Pulse Ox 85% on 100% BiPAP; sv 18:03 BP 109 / 80; Pulse 76; Resp 36; Pulse Ox 90% on 100% BiPAP; sv 19:47 BP 115 / 91; Pulse 78; Resp 28; Pulse Ox 88% on 100% BiPAP; mg2 20:49 BP 138 / 92; Pulse 77; Resp 28; Pulse Ox 86% on BiPAP; mg2 21:20 BP 124 / 97; Pulse 78; Resp 32; Pulse Ox 90% on 100% BiPAP; mg2 21:44 BP 128 / 90; Pulse 78; Resp 30; Pulse Ox 91% on 100% BiPAP; mg2 08/01 20:51 BP 131 / 93; Pulse 81; Resp 28; Temp 98.2; Pulse Ox 91% on 100% BiPAP; mg2 07/31 16:02 Body Mass Index 34.62 (129.00 kg, 193.04 cm) sv MDM: 07/31 16:03 Patient medically screened. kdr 08/01 07:30 Data reviewed: vital signs, nurses notes, lab test result(s), EKG, radiologic studies. kdr Counseling: I had a detailed discussion with the patient and/or guardian regarding: the historical points, exam findings, and any diagnostic results supporting the discharge/admit diagnosis, lab results, radiology results, the need for further work-up and treatment in the hospital. 07/31 15:09 Order name: Blood Culture Adult (2) sv 07/31 15:09 Order name: BMP; Complete Time: 15:55 sv 07/31 15:09 Order name: C-Reactive Protein; Complete Time: 15:55 sv 07/31 15:09 Order name: CBC with Diff; Complete Time: 16:39 sv 07/31 15:09 Order name: D-Dimer; Complete Time: 16:39 sv 07/31 15:09 Order name: Ferritin; Complete Time: 15:55 sv 07/31 15:09 Order name: Lactate; Complete Time: 15:47 sv 07/31 15:09 Order name: LFT's; Complete Time: 15:55 sv 07/31 15:09 Order name: Lipase; Complete Time: 15:55 sv 07/31 15:09 Order name: Procalcitonin; Complete Time: 18:07 sv 07/31 15:09 Order name: PT-INR; Complete Time: 16:39 sv 07/31 15:09 Order name: Ptt, Activated; Complete Time: 16:39 sv 07/31 15:09 Order name: Troponin (emerg Dept Use Only); Complete Time: 15:55 sv 07/31 15:09 Order name: Urine Microscopic Only sv 07/31 15:09 Order name: CXR XRAY; Complete Time: 15:51 sv 07/31 15:11 Order name: ABG; Complete Time: 15:47 kdr 07/31 16:26 Order name: CBC Smear Scan; Complete Time: 16:39 EDMS 07/31 17:31 Order name: ABG; Complete Time: 18:07 kdr 07/31 20:00 Order name: Lactate Sepsis 2 HR Follow-up EDMS 07/31 21:50 Order name: Troponin I EDMS 07/31 21:57 Order name: NT PRO-BNP EDMS 07/31 22:52 Order name: Urine Dipstick--Ancillary (enter results) mw2 07/31 23:15 Order name: Urine Dipstick-Ancillary EDMS 08/01 01:42 Order name: Troponin I EDMS 08/01 05:55 Order name: CBC with Automated Diff EDMS 08/01 06:05 Order name: Basic Metabolic Panel EDMS 08/01 06:05 Order name: NT PRO-BNP EDMS 08/01 09:48 Order name: C-Reactive Protein EDMS 08/01 12:26 Order name: Glucose, Ancillary Testing EDMS 08/01 18:06 Order name: Glucose, Ancillary Testing EDMS 07/31 15:09 Order name: EKG; Complete Time: 15:10 sv 07/31 15:09 Order name: Cardiac monitoring; Complete Time: 15:28 sv 07/31 15:09 Order name: Droplet/Contact Precautions; Complete Time: 15:28 sv 07/31 15:09 Order name: EKG - Nurse/Tech; Complete Time: 15:28 sv 07/31 15:09 Order name: IV Start; Complete Time: 15:28 sv 07/31 15:09 Order name: Labs collected and sent; Complete Time: 15:28 sv 07/31 15:09 Order name: O2 Per Protocol; Complete Time: 15:28 sv 07/31 15:09 Order name: O2 Sat Monitoring; Complete Time: 15:28 sv 07/31 15:09 Order name: Urine Dipstick-Ancillary (obtain specimen); Complete Time: 22:46 sv 07/31 15:58 Order name: CT Chest For PE Angio; Complete Time: 17:31 kdr 08/01 11:36 Order name: RAD EDMS Administered Medications: 07/31 16:09 Drug: Lovenox 1 mg/kg Route: Sub-Q; Site: right lower abdomen; sv 16:36 Follow up: Response: No adverse reaction sv 16:10 Drug: SOLU-Medrol 80 mg Route: IVP; Site: right wrist; sv 16:36 Follow up: Response: No adverse reaction sv 16:33 Drug: Ivermectin 150 mcg/kg Route: PO; sv 17:45 Follow up: Response: No adverse reaction sv Disposition: 08/01 07:39 Critical Care:. kdr Disposition: 07/31/20 16:03 Hospitalization ordered by Gabi Johnson for Inpatient Admission. Preliminary diagnosis are Dyspnea, Acute and chronic respiratory failure with hypoxia, SARS-associated coronavirus as the cause of diseases classified elsewhere. - Bed requested for Intensive Care Unit. - Status is Inpatient Admission. mg2 - Condition is Serious. - Problem is an acute exacerbation. - Symptoms have improved. Critical care time excluding procedures: 07:39 Critical care time: Bedside Care: 20 minutes, Consultation: 15 minutes, Family kdr Intervention: 10 minutes. Total time: 45 minutes Signatures: Dispatcher [employer] EDMS Lena Garcia RN PRINCESS Aislinn Solano RN RN Cyndi Lopez RN RN dw Daquan Vidal MD MD [facility] Ricardo Castaneda RN RN mg2 Corrections: (The following items were deleted from the chart) 07/31 18:12 16:03 Hospitalization Ordered by A Elizabeth DREW for Inpatient Admission. Preliminary kdr diagnosis is Dyspnea; Acute and chronic respiratory failure with hypoxia; SARS-associated coronavirus as the cause of diseases classified elsewhere. Bed requested for Telemetry/MedSurg (Inpatient). Status is Inpatient Admission. Condition is Serious. Problem is an acute exacerbation. Symptoms have improved. kdr 20:53 15:10 UA MICROSCOPIC+U.LAB.BRZ ordered. EDIA EDMS 20:53 15:12 BiPap ([employer] Only)+RC.RAD.BRZ ordered. [facility] EDIA 21:29 18:12 07/31/2020 16:03 Hospitalization Ordered by A Elizabeth DREW for Inpatient Admission. mw Preliminary diagnosis is Dyspnea; Acute and chronic respiratory failure with hypoxia; SARS-associated coronavirus as the cause of diseases classified elsewhere. Bed requested for Intensive Care Unit. Status is Inpatient Admission. Condition is Serious. Problem is an acute exacerbation. Symptoms have improved. kdr 08/01 19:56 07/31 21:29 07/31/2020 16:03 Hospitalization Ordered by A Elizabeth DREW for Inpatient dw Admission. Preliminary diagnosis is Dyspnea; Acute and chronic respiratory failure with hypoxia; SARS-associated coronavirus as the cause of diseases classified elsewhere. Bed requested for [facility] ER HOLD. Status is Inpatient Admission. Condition is Serious. Problem is an acute exacerbation. Symptoms have improved. mw 08/01 20:57 19:56 07/31/2020 16:03 Hospitalization Ordered by A Elizabeth DREW for Inpatient Admission. mg2 Preliminary diagnosis is Dyspnea; Acute and chronic respiratory failure with hypoxia; SARS-associated coronavirus as the cause of diseases classified elsewhere. Bed requested for Intensive Care Unit. Status is Inpatient Admission. Condition is Serious. Problem is an acute exacerbation. Symptoms have improved. dw
--- NOTE | 2020-07-31 16:03 | ER ---
Nurse's Notes [facility] Name: Ted Chavez Age: 80 yrs Sex: Male : 1940 Arrival Date: 07/31/2020 Time: 15:00 Bed 4 Private MD: Diagnosis: Dyspnea;Acute and chronic respiratory failure with hypoxia;SARS-associated coronavirus as the cause of diseases classified elsewhere Presentation: 07/31 14:55 Chief complaint: EMS states: called out by pt and family stating O2 sat was in the 70s, sv pt recently admitted with COVID and discharged recently. Was stated by family that when he was discharged his O2 sats were in the 80s. On EMS arrival today, pt had an O2 sat of 65%. Placed on 100% NRB and sat went up to about 85%. Coronavirus screen: Client denies travel out of the [place] in the last 14 days. Client reports previous positive COVID test result. Date of collection: July 25, 2020. Ebola Screen: No symptoms or risks identified at this time. 14:55 Method Of Arrival: EMS: [facility] sv 15:00 Risk Assessment: Do you want to hurt yourself or someone else? Patient reports no sv desire to harm self or others. Onset of symptoms was July 31, 2020. 15:00 Acuity: KJ 1 sv 16:11 Initial Sepsis Screen: Does the patient meet any 2 criteria? RR > 20 per min. No. sv Patient's initial sepsis screen is negative. Does the patient have a suspected source of infection? No. Patient's initial sepsis screen is negative. Triage Assessment: 14:55 General: Appears in no apparent distress. comfortable, well developed, Behavior is sv calm, cooperative, appropriate for age. Pain: Denies pain. Neuro: Level of Consciousness is awake, alert, obeys commands, Oriented to person, place, time, situation. Respiratory: Reports shortness of breath at rest on exertion Airway is patent Respiratory effort is even, unlabored, Respiratory pattern is tachypnea Onset: The symptoms/episode began/occurred today, the patient has moderate shortness of breath. Derm: Skin is intact, Skin is pink, warm \T\ dry. Musculoskeletal: Range of motion: intact in all extremities. Historical: - Allergies: 15:22 Oxycodone; sv 15:22 Phenergan; sv 15:22 Tylenol-Codeine #3; sv - Home Meds: 21:33 Eliquis Oral [Active]; sotalol Oral [Active]; mg2 - PMHx: 15:22 AFIB; Cancer; sv - PSHx: 15:22 Cholecystectomy; Prostetectomy; sv - Immunization history:: Adult Immunizations up to date. - Social history:: Smoking status: . Screenin:23 Abuse screen: Denies threats or abuse. Denies injuries from another. Nutritional sv screening: No deficits noted. Tuberculosis screening: No symptoms or risk factors identified. Fall Risk None identified. Assessment: 15:00 Reassessment: Dasia EASON at bedside to place BIPAP. sv 16:12 Respiratory: Patient placed on BiPAP: Inspiratory Pressure: 14 Expiratory (EPAP) sv Pressure: 14 FiO2%: 100 Respiratory Rate: 16. 16:36 Reassessment: Patient appears in no apparent distress at this time. No changes from sv previously documented assessment. Patient and/or family updated on plan of care and expected duration. Pain level reassessed. Patient is alert, oriented x 3, equal unlabored respirations, skin warm/dry/pink. 18:21 Reassessment: Patient appears in no apparent distress at this time. No changes from sv previously documented assessment. Pt turned to his left side with the BIPAP. 18:30 Reassessment: Dr Nagel at the bedside. sv 18:44 Reassessment: Patient appears in no apparent distress at this time. No changes from sv previously documented assessment. Pt moved over to a hospital bed. 19:30 General: Appears in no apparent distress. comfortable, Behavior is calm, cooperative, rr5 appropriate for age. 19:30 Pain: Denies pain. Neuro: Level of Consciousness is awake, alert, obeys commands, rr5 Oriented to person, place, time. Cardiovascular: Capillary refill < 3 seconds Patient's skin is warm and dry. Rhythm is regular. Respiratory: Airway is patent Respiratory effort is even, Respiratory pattern is tachypnea Patient placed on BiPAP:. GI: No signs and/or symptoms were reported involving the gastrointestinal system. : No signs and/or symptoms were reported regarding the genitourinary system. EENT: No signs and/or symptoms were reported regarding the EENT system. Derm: Skin is intact, is healthy with good turgor, Skin temperature is warm. Musculoskeletal: Capillary refill < 3 seconds. 19:46 Reassessment: patient on BIPAP. he is on a hospital bed , alert and awake. mg2 20:30 Reassessment: Patient appears in no apparent distress at this time. Patient is alert, rr5 oriented x 3, equal unlabored respirations, skin warm/dry/pink. 21:33 Reassessment: dr. ngael called updated for the V/S, with telephone order made will be rr5 put in Pop.it. hospitalist spoke to him with order to add on BNP if elevated can give lasix 20mg/IV, can do byrnes catheter and do prone position. 22:35 Reassessment: Patient appears in no apparent distress at this time. Patient is alert, rr5 oriented x 3, equal unlabored respirations, skin warm/dry/pink. Pro BNP 1195 hospitalist aware, byrnes catheter and lasix 20 mg/IV ordered. 08/02 07:57 Respiratory: hb Vital Signs: 07/31 15:00 BP 118 / 86; Pulse 78; Resp 27; Temp 96.9; Pulse Ox 70% 4 lpm ; Pain 0/10; sv 15:48 BP 106 / 81; Pulse 79; Resp 32; Pulse Ox 93% on 100% BiPAP; sv 16:02 Weight 129 kg; Height 6 ft. 4 in. (193.04 cm); sv 16:48 BP 128 / 87; Pulse 79; Resp 31; Pulse Ox 91% on 100% BiPAP; sv 17:15 BP 106 / 77; Pulse 80; Resp 31; Pulse Ox 85% on 100% BiPAP; sv 18:03 BP 109 / 80; Pulse 76; Resp 36; Pulse Ox 90% on 100% BiPAP; sv 19:47 BP 115 / 91; Pulse 78; Resp 28; Pulse Ox 88% on 100% BiPAP; mg2 20:49 BP 138 / 92; Pulse 77; Resp 28; Pulse Ox 86% on BiPAP; mg2 21:20 BP 124 / 97; Pulse 78; Resp 32; Pulse Ox 90% on 100% BiPAP; mg2 21:44 BP 128 / 90; Pulse 78; Resp 30; Pulse Ox 91% on 100% BiPAP; mg2 08/01 20:51 BP 131 / 93; Pulse 81; Resp 28; Temp 98.2; Pulse Ox 91% on 100% BiPAP; mg2 07/31 16:02 Body Mass Index 34.62 (129.00 kg, 193.04 cm) sv ED Course: 07/31 15:00 Patient arrived in ED. ds1 15:00 First set of blood cultures drawn by me. Inserted saline lock: 20 gauge in right wrist, sv using aseptic technique. Blood collected. Flushed right with 5 ml normal saline. 15:07 Patient has correct armband on for positive identification. Placed in gown. Bed in low mh5 position. Call light in reach. Side rails up X2. Pillow given. bus monitor on. Pulse ox on. NIBP on. 15:08 Lena Garcia RN is Primary Nurse. sv 15:08 EKG done, by ED staff, reviewed by Daquan Vidal MD. mh5 15:10 Daquan Vidal MD is Attending Physician. kdr 15:10 Arm band placed on. sv 15:10 Second set of blood cultures drawn by me. sv 15:22 Triage completed. sv 15:29 CXR XRAY In Process Unspecified. EDMS 16:02 Gabi Nagel MD is Hospitalizing Provider. kdr 16:[address] via stretcher. sv 16:45 CT Chest For PE Angio In Process Unspecified. EDMS 18:00 ABG drawn. by RT staff, on oxygen. sv 19:15 Primary Nurse role handed off by Lena Garcia RN sv 19:32 Ganesh Hurst, PRINCESS is Primary Nurse. rr5 21:32 No provider procedures requiring assistance completed. Patient admitted, IV remains in mg2 place. 08/01 11:02 Primary Nurse role handed off by Ganesh Hurst RN eb 14:36 Jess Choe, RN is Primary Nurse. hb 19:24 Primary Nurse role handed off by Jess Choe, RN mw2 Administered Medications: 07/31 16:09 Drug: Lovenox 1 mg/kg Route: Sub-Q; Site: right lower abdomen; sv 16:36 Follow up: Response: No adverse reaction sv 16:10 Drug: SOLU-Medrol 80 mg Route: IVP; Site: right wrist; sv 16:36 Follow up: Response: No adverse reaction sv 16:33 Drug: Ivermectin 150 mcg/kg Route: PO; sv 17:45 Follow up: Response: No adverse reaction sv Outcome: 16:03 Decision to Hospitalize by Provider. kdr 21:43 Admitted to ER Hold. Please see [facility] for further documentation. mg2 21:43 Condition: stable 08/01 20:47 Admitted to ICU accompanied by tech, room 7, with oxygen, with chart, Report called to nguyen Moser RN 20:[address] [facility] [place] Signatures: Dispatcher [employer] EDMS Lena Garcia RN RN Daquan Vidal MD MD [facility] Damaris Rose ds1 Jess Choe RN RN Jasmina Platt 5 Nelson Norman mw2 Adenike Portillo Michele RN RN [facility] Ganesh Hurst RN RN rr5 Corrections: (The following items were deleted from the chart) 07/31 15:26 14:55 Coronavirus screen: Client denies travel out of the [place] in the last 14 days. sv Client reports previous positive COVID test result. sv 16:11 15:00 BP 118 / 86; Pulse 78bpm; Resp 27bpm; Pulse Ox 70% 4 lpm; Pain 0/10; sv sv 20:49 19:47 BP 115 / 91; Pulse 78bpm; Resp 17bpm; Pulse Ox 88% 02 100% BiPAP; Temp 28F; mg2 mg2 20:53 15:28 To radiology for BiPap ([employer] Only)+RC.RAD.BRZ. sv EDMS
[2020-07-31] MEDS ORDERED: ENOXAPARIN 100 MG/ML SYR SQ ONE (16:13)
[2020-07-31] MEDS ORDERED: ENOXAPARIN 30 MG/0.3 ML SQ ONE (16:14)
[2020-07-31 16:26] LABS: Blood Morphology Comment NOT SEEN (NOT SEEN); Platelet Estimate ADEQ; White Blood Cell Scan OK (OK)
--- NOTE | 2020-07-31 16:56 | RAD REPORT ---
EXAM DESCRIPTION: CT - Chest For Pe Angio - 07/31/2020 4:45 pm CLINICAL HISTORY: Chest pain. HEMOPTYSIS COMPARISON: No comparisons TECHNIQUE: CT angiogram of the pulmonary arteries was performed with MIP. All CT scans are performed using dose optimization technique as appropriate and may include automated exposure control or mA/KV adjustment according to patient size. FINDINGS: Small subsegmental branch pulmonary embolism suspected right upper lobe and posterior righ t lower lobe pulmonary arterial tree branches. No left-sided pulmonary embolism seen. No evidence of right heart strain. No acute aortic finding demonstrated. Extensive bilateral airspace opacity seen particularly in the left lung, medial right upper lobe and right posterior lower lobe. This is most compatible with infection. No significant pericardial or pleural fluid. No concerning bony finding. Small hiatal hernia. Cholecystectomy clips. IMPRESSION: Small segmental branch right-sided pulmonary emboli noted. Extensive airspace opacity, greater on the left, compatible with pneumonia/ infection.
[2020-07-31] MEDS ORDERED: IVERMECTIN 3 MG TABLET PO ONE (17:00)
[2020-07-31 17:59] LABS: Blood Gas Oxyhemoglobin 82.4 % (94-97); Blood O2 Saturation 83.8 % (92-98.5)
[2020-07-31] MEDS ORDERED: IPRATROPIUM BROM 0.5MG/2.5ML NEB PRN (21:20)
[2020-07-31] MEDS ORDERED: ALBUTEROL 2.5 MG/3 ML NEB SOL NEB PRN (21:20)
[2020-07-31] MEDS ORDERED: THIAMINE 200 MG/2 ML INJ IVP ONE (21:33)
[2020-07-31] MEDS: FAMOTIDINE 20 MG/2 ML VIAL IV SCH (22:00)
[2020-07-31] MEDS ORDERED: FAMOTIDINE 20 MG/2 ML VIAL IV ONE (22:22)
[2020-07-31] MEDS ORDERED: THIAMINE 200 MG/2 ML INJ ONE (22:22)
[2020-07-31] MEDS ORDERED: FUROSEMIDE 20 MG/ 2ML VIAL ONE (22:34)
[2020-07-31] MEDS ORDERED: FUROSEMIDE 20 MG/ 2ML VIAL IV ONE (22:48)
[2020-07-31 23:15] LABS: Urine Blood NEGATIVE (NEG); Urine Glucose NEGATIVE (NEG); Urine Protein 1+ (NEG); Urine Specific Gravity 1.025 (1.005-1.030)
[2020-07-31 23:40] LABS: Urine Bacteria 20-50 /HPF (NONE SEEN); Urine RBC <5 /HPF (NONE SEEN)
[2020-08-01] MEDS: METHYLPREDNISOLONE 40 MG INJ IV SCH ×3 (01:00→17:00)
[2020-08-01] MEDS ORDERED: METHYLPREDNISOLONE 40 MG INJ ONE ×3 (01:33→18:04)
[2020-08-01] MEDS ORDERED: Enoxaparin 120 MG/0.8 ML SYR SQ SCH (05:00)
[2020-08-01] MEDS ORDERED: ENOXAPARIN 80 MG/0.8 ML SQ ONE ×2 (05:34→21:09)
[2020-08-01] MEDS ORDERED: ENOXAPARIN 40 MG/0.4 ML SQ ONE ×2 (05:34→21:10)
[2020-08-01 05:45] LABS: Absolute Lymphocytes (CBC) 0.4 K/uL (0.7-4.9); Basophils % 0.1 % (0-1.3); Hematocrit 45.8 % (39.6-49.0); Lymphocytes % 4.1 % (15.3-44.8); MPV 7.6 fL (7.6-11.3); RBC Red Blood Cell Count 5.21 M/uL (4.33-5.43)
[2020-08-01 06:04] LABS: Potassium 3.5 mmol/L (3.5-5.1)
[2020-08-01] MEDS: FAMOTIDINE 20 MG/2 ML VIAL IV SCH ×2 (09:00→22:01)
[2020-08-01] MEDS: THIAMINE 200 MG/2 ML INJ IVP SCH (09:00)
[2020-08-01] MEDS ORDERED: D50W 25 GM/50 ML SYRINGE IV PRN (09:27)
[2020-08-01] MEDS ORDERED: GLUCAGON 1 MG/VIAL IM PRN (09:27)
[2020-08-01] MEDS ORDERED: SOTALOL HCL 80 MG TAB PO ONE (10:06)
[2020-08-01] MEDS ORDERED: FAMOTIDINE 20 MG/2 ML VIAL IV ONE (10:18)
[2020-08-01] MEDS ORDERED: PNEUMOCOCCAL VACCINE 0.5 ML IMVAC ONE ×2 (11:00→12:19)
[2020-08-01] MEDS: INSULIN -REGULAR HUMAN 50 UNIT/0.5 ML ML SQ SCH ×3 (11:30→20:56)
--- NOTE | 2020-08-01 11:36 | RAD REPORT ---
EXAM DESCRIPTION: RAD - Chest Single View - 08/01/2020 10:48 am CLINICAL HISTORY: covid pneumonia Chest pain. COMPARISON: Chest Single View dated 07/31/2020; Chest Single View dated 07/28/2020; Chest Single View dated 07/27/2020; Chest Single View dated 07/26/2020; Chest For Pe Angio dated 07/31/2020 FINDINGS: Portable technique limits examination quality. Asymmetric interstitial and alveolar lung opacities are present, greater on the left and appearing es sentially unchanged since prior study. The heart is mildly enlarged in size. No displaced fractures.
[2020-08-01] MEDS ORDERED: SOTALOL HCL 80 MG TAB ONE (12:18)
--- NOTE | 2020-08-01 13:23 | PN ---
Date of Progress Note: 08/01/2020 Subjective: The patient was seen this morning for followup. He was lying in bed in supine position. When I saw him, his oxygen saturation was ranging between 86% to 87%. He was not in any distress a nd reports that he is feeling better today than yesterday. He diuresed well with 1 dose of Lasix ove rnight and has a Dominguez catheter in place and urine is yellow in color. Hemodynamically, he is stable . Vital signs reviewed. The patient reports no other complaints. Objective: HEENT: Unremarkable. LUNGS: Clear to auscultation, bilateral equal air entry. HEART: Heart sounds normal. ABDOMEN: Soft. Bowel sounds normal. No guarding, rigidity, tenderness, or distention. EXTREMITIES: Trace leg edema. Laboratory Data: White count 9.7, hemoglobin 15.8, platelets 191. Sodium 140, potassium 3.5, chlori de 105, bicarb 28, BUN 27, creatinine 0.99, glucose 190. CRP 82.9. ProBNP 1872. Impression: 1.COVID-19 infection. 2.COVID-19 pneumonia. 3.Acute respiratory failure with hypoxia. 4.Paroxysmal atrial fibrillation. 5.Type 2 diabetes mellitus. Plan: We will go ahead and manage diabetes with sliding scale insulin. Continue Lovenox. We will c ontinue his steroid. Continue to follow with Dr. Gaspar. We will go ahead and repeat blood work. Chest x-ray done today, unchanged from yesterday. We will continue his 100% oxygen with BiPAP and t he patient was sleeping on left or right side all throughout the night and he was encouraged to do so . Nursing staff was advised to see if possible and if he tolerates, get him in prone position and al l that should help with his oxygenation. He is not using any accessory muscles of respiration. Subj ectively, he is feeling better. We will continue current treatment. If condition deteriorates, then we will need to consider intubation and ventilator management. Details were discussed with him and I did call his this morning and gave her updates as well and also details were discussed with Dr Nahum Gaspar. LAXMI/MODL Voice ID: [id number] Report ID: [id number]
--- NOTE | 2020-08-01 13:29 | EKG ---
Test Date: 2020-07-31 Test Time: 15:01:36 Water Resource Consultant: STEFANO MEASUREMENT RESULTS: Intervals: Rate: 80 MA: QRSD: 86 QT: 436 QTc: 502 [place]: P: 213 MA: QRS: -82 T: 161 INTERPRETIVE STATEMENTS: Atrial flutter with 4:1 AV conduction Left anterior fascicular block Possible Lateral infarct, age undetermined Inferior infarct, age undetermined ST & T wave abnormality, consider anterior ischemia Prolonged QT Abnormal ECG Compared to ECG 07/24/2020 21:56:52 Left anterior fascicular block now present ST (T wave) deviation now present Possible ischemia now present Prolonged QT interval now present Atrial fibrillation no longer present Left-axis deviation no longer present Myocardial infarct finding still present Electronically Signed On 08-01-20 13:28:15 PHLEBOTOMY TECHNICIAN by Christiano Rosas
--- NOTE | 2020-08-01 14:02 | HP ---
Date of Admission: 07/31/2020 Chief Complaint: Shortness of breath. History Of Present Illness: This is a 80-year-old very pleasant male patient who was recently in hospital with COVID-19 infection and COVID-19 pneumonia. The patient's condition improved. He received IV steroid remdesivir and once his condition improved, he was discharged to go home with nasal cannula oxygen and he was maintaining adequate oxygenation in the hospital on nasal cannula. Symptomatically, he improved very well to the extent that he felt like he was ready to go home and medically stable for discharge. So, he was discharged to go home on July 28, 2020. Today, he comes back to emergency room with low oxygenation in the range of 75% to 80% at home and having shortness of breath with this. After he was evaluated in the ER, he was admitted to the hospital. I saw him in emergency room this evening. He was lying in bed, not using any accessory muscles of respiration. BiPAP with 100% oxygen was started in the emergency room and he is tolerating that very well and reports that he is feeling better with this treatment compared to how he was before he came to the hospital. No nausea, vomiting. No diarrhea. Allergies: CODEINE CAUSING NAUSEA, VOMITING. XARELTO CAUSING GI BLEEDING. PHENERGAN, DETAILS UNKNOWN. OXYCODONE, DETAILS UNKNOWN. Medications: At home, he takes sotalol 80 mg, takes half a tablet 3 times a day; rosuvastatin 5 mg 2 times a week, Eliquis 5 mg 2 times a day, and prednisone he takes 20 mg 2 times a day and he is using a tapering dose as prescribed during last hospital stay, so current dose is 20 mg 2 times a day. Review of Systems: Respiratory: As mentioned above. All other systems reviewed and negative. Past Medical History: Significant for type 2 diabetes mellitus, coronary artery disease, atrial fibrillation, hyperlipidemia, prostate cancer, leg edema. Past Surgical History: Tonsillectomy, prostatectomy, cholecystectomy, shoulder surgery. Family History: Father had diabetes. Mother had Alzheimer disease. Social History: Prior history of smoking, not at present time. Use of alcohol, negative. Physical Examination: Vital signs: When he came into emergency room, blood pressure 118/86, pulse 78, respiratory rate 27, oxygen saturation 70% on 4 L/minute nasal cannula oxygen. Weight 129 kg, height 6 feet 4 inches. General: Awake, alert, oriented, not in distress. HEENT: Head atraumatic, normocephalic. Conjunctivae nonerythematous. Sclerae white. Mouth, no thrush or edema noted. Ears/Nose, no mass, lesion, discharge noted. Neck: Supple. No JVD, lymph nodes, bruit, thyromegaly noted. Lungs: Bilateral good equal air entry. Clear to auscultation. No rhonchi. No rales. Heart: Normal heart sounds, no murmur or gallop. Abdomen: Soft, bowel sounds normal. No guarding, rigidity, tenderness, mass, hepatosplenomegaly, distention, or bruit noted. Extremities: Trace leg edema. Skin: No rash, ulcer, cellulitis. Lymphatics: No lymph node enlargement in neck, supraclavicular, infraclavicular region. Neuro: No focal neurological deficit. Chest: Unremarkable. External Genitalia: Deferred. Rectal: Deferred. Laboratory Data: White count 13.3, hemoglobin 16.4, platelets 244. INR 1.77. D-dimer 99,737. Blood gas; pH 7.49, pCO2 35.1, PO2 66.7, saturation 92.9% on 100% FiO2 with BiPAP. Sodium 138, potassium 3.5, chloride 104, bicarb 27, BUN 29, creatinine 1.01, glucose 178. Lactic acid 2.4, ferritin 427. Troponin less than 0.02. C-reactive protein 69.30. Liver function tests unremarkable. Lipase 681, procalcitonin less than 0.05. CAT scan of the chest per PE protocol shows small segmental branch right-sided pulmonary emboli noted. Extensive airspace opacity, greater on the left side compatible with pneumonia. His chest x-ray shows asymmetric bilateral pulmonary opacity, greater on the left, appears unchanged from previous chest x-ray. Impression: 1. COVID-19 infection. 2. COVID-19 pneumonia. 3. Acute respiratory failure with hypoxia. 4. Atrial fibrillation, paroxysmal. 5. Pulmonary embolism. 6. Chronic anticoagulation therapy. 7. Hyperlipidemia, mixed. 8. Coronary artery disease. 9. Prostate cancer. 10. Type 2 diabetes mellitus. Plan: Admit the patient to hospital for further evaluation and management of this problem. The patient is appropriate for inpatient and is expected to spend 2 midnights in hospital. We will go ahead and continue home medications per order, which is sotalol and instead of Eliquis, we will start the patient on Lovenox. He did receive 1 dose of Lovenox in the emergency room along with also he received 130 mg of Lovenox, 80 mg of Solu-Medrol, and ivermectin. We will continue BiPAP with oxygen support. Continue his steroid, Lovenox, and BNP was ordered, which was slightly elevated and Lasix 1 time dose was given to him. Dominguez catheter will be placed. We will give him thiamine nebulizer treatment as needed and consult Dr. Gaspar from Pulmonary. If his condition deteriorates, then he may require ventilator support. All these details were discussed with him and I did call his and discussed all the details with her as well. The patient is full code. LAXMI/MODL Voice ID: [id number] MTDD
[2020-08-01] MEDS ORDERED: INSULIN LISPRO 100 UNIT/1 ML ONE (18:22)
[2020-08-01] MEDS ORDERED: INSULIN -REGULAR HUMAN 50 UNIT/0.5 ML ML ONE ×2 (18:30→21:09)
[2020-08-01] MEDS: Enoxaparin 120 MG/0.8 ML SYR SQ SCH (20:56)
[2020-08-01] MEDS: SOTALOL HCL 80 MG TAB PO SCH (22:01)
[2020-08-02] MEDS: METHYLPREDNISOLONE 40 MG INJ IV SCH ×3 (00:10→16:58)
[2020-08-02 06:41] LABS: Absolute Lymphocytes (CBC) 0.5 K/uL (0.7-4.9); Basophils % 0.4 % (0-1.3); Hematocrit 50.4 % (39.6-49.0); Lymphocytes % 3.3 % (15.3-44.8); MPV 8.2 fL (7.6-11.3); RBC Red Blood Cell Count 5.64 M/uL (4.33-5.43)
[2020-08-02 07:02] LABS: Albumin 2.3 g/dL (3.4-5.0); Bilirubin Total 0.8 mg/dL (0.2-1.0); C-Reactive Protein 53.9 mg/L (<3.00); Ferritin 516.3 ng/mL (26-388); Potassium 3.4 mmol/L (3.5-5.1); Protein, Total 6.2 g/dL (6.4-8.2)
[2020-08-02 07:43] LABS: Blood Morphology Comment NOT SEEN (NOT SEEN); Platelet Estimate ADEQ; White Blood Cell Scan OK (OK)
[2020-08-02] MEDS ORDERED: POTASSIUM CL SA 10 MEQ TAB PO ONE ×2 (08:17→21:00)
[2020-08-02] MEDS: FAMOTIDINE 20 MG/2 ML VIAL IV SCH ×2 (08:45→20:29)
[2020-08-02] MEDS: INSULIN -REGULAR HUMAN 50 UNIT/0.5 ML ML SQ SCH ×4 (08:46→20:29)
[2020-08-02] MEDS: SOTALOL HCL 80 MG TAB PO SCH ×2 (08:46→20:31)
[2020-08-02] MEDS: THIAMINE 200 MG/2 ML INJ IVP SCH (09:00)
[2020-08-02] MEDS: Enoxaparin 120 MG/0.8 ML SYR SQ SCH ×2 (10:13→19:49)
--- NOTE | 2020-08-02 11:04 | P.CNS ---
Date of Consult: 08/02/20 Reason for Consult: Respiratory failure from thayer virus Chief Complaint: Respiratory failure History of Present Illness: Patient is 80 years of age was recently discharged with thayer virus pneumonia came back again worsening shortness of breath compliant with his medication experience significant desat on minimal exertion his doing somewhat better although still requiring high concentrations of oxygen Allergies promethazine HCl [From Phenergan] Allergy (Verified 07/25/20 01:56) Shortness of breath acetaminophen [From Tylenol-Codeine #3] Adverse Reaction (Verified 07/25/20 01:56) Nausea/Vomiting codeine phosphate [From Tylenol-Codeine #3] Adverse Reaction (Verified 07/25/20 01:56) Nausea/Vomiting oxycodone [Oxycodone] Adverse Reaction (Verified 07/25/20 01:56) Nausea/Vomiting Home Medications: Sotalol HCl [Betapace*] 80 mg PO BID 6AM 6PM #60 tab 03/17/14 Apixaban [Eliquis] 5 mg PO BID 07/25/20 - Past Medical/Surgical History Diabetic: No -: history of afibb -: history of prostate cancer -: Cancer -: Cholecystectomy -: Prostate Surgery - Social History Alcohol use: Yes CD- Drugs: No Caffeine use: Yes Review of Systems General: Weakness Respiratory: Shortness of Breath Physical Examination Temp Pulse Resp BP Pulse Ox 97.2 F 91 H 31 H 132/95 H 91 08/02/20 08:00 08/02/20 09:00 08/02/20 09:00 08/02/20 09:00 08/02/20 09:00 General: Alert, Oriented x3, Mild distress Respiratory: Clear to auscultation bilaterally, Diminished Cardiovascular: No edema, Normal S1 S2 Gastrointestinal: Normal bowel sounds, Soft and benign - Problems (1) Acute respiratory failure due to severe acute respiratory syndrome coronavirus 2 (SARS-CoV-2) infection Current Visit: Yes Status: Acute Plan: Patient is 80 years of age 81 admitted to the hospital again with worsening respiratory failure from thayer virus patient is on maximum multi vitamin dose supplementation continue with steroids ivermectin
--- NOTE | 2020-08-02 11:36 | PN ---
Date of Progress Note: 08/02/2020 Subjective: Patient was seen this morning for followup. No new complaints or problems reported by him. Lying in bed in ICU on BiPAP with 100% FiO2. His oxygen saturation when I saw him was 93%. He has been maintaining his oxygen saturation around that range and his oxygen saturation actually improves when he is sitting upright. So yesterday, I did talk to the nurse and advised to keep patient in upright position as long as he tolerates and his oxygen saturation is better while he is sitting versus lying on the left or right lateral side. Patient feels better. Has a Dominguez catheter which was placed in emergency room. Today, we see some gross hematuria. Because of any attempt that he does with any activity even in the bed he gets short of breath, so at this point is requesting not to take out Dominguez catheter and we will consider removing Dominguez catheter may be next day or 2 days once his breathing improves. Yesterday, he did receive Glucerna and orange juice and will try same thing today to see if he can eat and drink some liquids. Intake and output records reviewed. Objective: Vital Signs: Reviewed. HEENT: Unremarkable. Lungs: Clear to auscultation. Heart: Sounds normal. Abdomen: Soft. Bowel sounds normal. No guarding, rigidity, tenderness, distension. Extremities: No leg edema. Laboratory Data: White count 14.3, hemoglobin 16.6, platelets 250. Sodium 140, potassium 3.4, chloride 106, bicarb 28, BUN 36, creatinine 1.05, glucose 198, CRP 53.9. Liver function tests normal. Ferritin level 516. Impression: 1. COVID-19 pneumonia. 2. COVID-19 infection. 3. Acute respiratory failure with hypoxia. 4. Gross hematuria. 5. Pulmonary embolism, right lung. 6. Atrial fibrillation, paroxysmal. 7. Type 2 diabetes mellitus with hyperglycemia secondary to steroid use. Plan: We will go ahead and continue insulin per sliding scale per order for diabetes management. Patient received his first dose of ivermectin when he came into emergency room on the day of admission. We will go ahead and continue steroid, continue oxygen. When I saw him this morning, he was on BiPAP 100% FiO2, oxygen saturation around 93%, and clinically he feels better since he has been in the hospital. I talked to respiratory therapist and we will try high- flow oxygen today's to see if he can tolerate that. Maintain adequate oxygenation. He was encouraged to stay upright in sitting position. We will continue Lovenox and will flush Dominguez catheter. Yesterday, I did communicate with patient's 2-3 times and gave her updates and we will contact her today also to keep some more updates. We will continue to follow with Dr. Gaspar and we will repeat blood work and chest x-ray tomorrow. LAXMI/MODL Voice ID: [id number] Report ID: [id number] MTDD
[2020-08-02] MEDS ORDERED: SPECIAL ORDER MED 1 EA UNK PO ONE (16:00)
[2020-08-02] MEDS ORDERED: ENOXAPARIN 30 MG/0.3 ML SQ ONE (19:48)
[2020-08-02] MEDS: THIAMINE HCL 100 MG TABLET PO SCH (20:30)
[2020-08-02] MEDS: MELATONIN 5 MG TABLET PO SCH (20:30)
[2020-08-02] MEDS: ATORVASTATIN 40 MG TAB PO SCH (20:30)
[2020-08-03] MEDS: METHYLPREDNISOLONE 40 MG INJ IV SCH ×2 (00:06→08:15)
[2020-08-03 05:10] LABS: Absolute Lymphocytes (CBC) 0.4 K/uL (0.7-4.9); Basophils % 0.1 % (0-1.3); Lymphocytes % 2.4 % (15.3-44.8); RBC Red Blood Cell Count 4.97 M/uL (4.33-5.43)
[2020-08-03 05:43] LABS: Bilirubin Total 0.8 mg/dL (0.2-1.0); C-Reactive Protein 26.1 mg/L (<3.00); Potassium 3.9 mmol/L (3.5-5.1); Protein, Total 5.6 g/dL (6.4-8.2)
[2020-08-03] MEDS: INSULIN -REGULAR HUMAN 50 UNIT/0.5 ML ML SQ SCH ×4 (07:30→20:42)
--- NOTE | 2020-08-03 07:57 | RAD REPORT ---
EXAM DESCRIPTION: RAD - Chest Single View - 08/03/2020 5:36 am CLINICAL HISTORY: covid pneumonia COMPARISON: Portable August 01 TECHNIQUE: AP portable chest image was obtained 08/03/2020 5:36 am . FINDINGS: Lung volumes are low. Small right base enlarged left lung field opacities are present. Jese ateral pleural evident. Findings are not substantially different when adjusting for the low lung volu mes. No improvement is suspected. Cardiac silhouette is enlarged but stable. No measurable pleural effusion and no pneumothorax. No ac tanya bony abnormality seen. No acute aortic findings suspected. IMPRESSION: Low lung volumes accentuate the bilateral lung parenchymal opacification. No evidence for improvement since August 01.
[2020-08-03] MEDS ORDERED: POTASSIUM CL SA 10 MEQ TAB PO ONE (08:00)
[2020-08-03] MEDS: THIAMINE HCL 100 MG TABLET PO SCH ×2 (08:14→20:18)
[2020-08-03] MEDS: FAMOTIDINE 20 MG/2 ML VIAL IV SCH ×2 (08:14→20:18)
[2020-08-03] MEDS: VITAMIN D 1000 UNIT TAB PO SCH (08:14)
[2020-08-03] MEDS: ZINC SULFATE 220 MG CAP PO SCH (08:14)
[2020-08-03] MEDS: SOTALOL HCL 80 MG TAB PO SCH ×2 (08:14→20:18)
[2020-08-03] MEDS: Enoxaparin 120 MG/0.8 ML SYR SQ SCH ×2 (08:16→20:17)
[2020-08-03] MEDS ORDERED: VITAMIN D 1000 UNIT TAB PO SCH (09:00)
[2020-08-03] MEDS: METHYLPREDNISOLONE 125 MG INJ IV SCH ×2 (09:00→16:56)
--- NOTE | 2020-08-03 12:37 | P.PN ---
Subjective Date of Service: 08/03/20 Chief Complaint: Respiratory failure Subjective: Improving (Patient is subjectively feeling better although still requiring 100% FiO2) Review of Systems General: Weakness Respiratory: Shortness of Breath Physical Examination - Vital Signs Temperature: 96.8 F Blood Pressure: 137/97 Pulse: 62 Respirations: 22 Pulse Ox (%): 88 Assessment & Plan - Problems (Diagnosis) (1) Acute respiratory failure due to severe acute respiratory syndrome coronavirus 2 (SARS-CoV-2) infection Current Visit: Yes Status: Acute Plan: Respiratory failure S patient subjectively feels better still requiring 100% FiO2 is on maximum therapy right now chest x-ray still shows significant interstitial lung disease agree with full-dose anticoagulation
[2020-08-03] MEDS: ASPIRIN EC 81 MG TAB PO SCH (13:05)
[2020-08-03] MEDS: MELATONIN 5 MG TABLET PO SCH (20:18)
[2020-08-03] MEDS: ATORVASTATIN 40 MG TAB PO SCH (20:18)
[2020-08-04] MEDS: METHYLPREDNISOLONE 125 MG INJ IV SCH ×3 (00:06→16:48)
[2020-08-04 04:50] LABS: Absolute Lymphocytes (CBC) 0.3 K/uL (0.7-4.9); Basophils % 0.1 % (0-1.3); Hematocrit 44.3 % (39.6-49.0); Lymphocytes % 1.8 % (15.3-44.8); MPV 8.1 fL (7.6-11.3); RBC Red Blood Cell Count 5.02 M/uL (4.33-5.43)
[2020-08-04 05:13] LABS: Bilirubin Total 0.8 mg/dL (0.2-1.0); C-Reactive Protein 15.7 mg/L (<3.00); Magnesium 2.9 mg/dL (1.8-2.4); Protein, Total 5.6 g/dL (6.4-8.2)
--- NOTE | 2020-08-04 06:59 | PN ---
Date of Progress Note: 08/03/2020 Subjective: The patient was seen this morning for followup. No new complaints or problems reported by the patient. Lying in bed in ICU on high-flow oxygen at 100%, maintaining adequate oxygenation. He has a Dominguez catheter in place and urine is yellow in color. He had some bleeding around the ureth ral meatus and has gauze applied there, which has blood stains on it. There is no active bleeding. Overall, he feels better, he looks better. His appetite is still poor but slowly improving. Objective: HEENT: Unremarkable. LUNGS: Clear to auscultation. HEART: Sounds normal. ABDOMEN: Soft. Bowel sounds normal. No guarding, rigidity, tenderness, distention. Extremities: No leg edema. Laboratory Data: White count 14.4, hemoglobin 15.2, platelets 213. Sodium 139, potassium 3.9, chlor ciera 104, bicarb 30, BUN 37, creatinine 1.02, glucose 194, ferritin 525, CRP 26.10. Liver function te sts unremarkable. Chest x-ray, no change in pulmonary opacity compared to before. Impression: 1.COVID-19 infection. 2.COVID-19 pneumonia. 3.Acute respiratory failure with hypoxia. 4.Gross hematuria. 5.Atrial fibrillation. 6.Chronic anticoagulation therapy. 7.Pulmonary embolism. Plan: The patient is on Lovenox, we will continue that. Yesterday evening because of hematuria, we did not give him his usual dose of Lovenox which is 120 mg instead of that we gave only 30 mg Lovenox . His hematuria problem has improved. Urine is clear yellow in color and there is no active bleedin g from urethral meatus. Likely reason for this bleeding is probably trauma from the Dominguez catheter p lacement. As of this morning, we will restart his usual dose of Lovenox 120 mg and continue to monit or patient. I did talk to urologist, Dr. Verdugo and he will evaluate the patient tomorrow. Mic meehan, we try to see if the patient can sit at the bedside instead of lying down and if he is able to th en, we may consider removing Dominguez catheter, but he was not able to tolerate that and his oxygen satu ration dropped into 77%-78% range and he recovered quickly. Once he was back in the bed, resting upr ight. We will continue his current steroid, high-flow oxygen, and continue to follow with Dr. Kurt quintero LAXMI/MODL Voice ID: [id number] Report ID: [id number]
--- NOTE | 2020-08-04 08:04 | RAD REPORT ---
EXAM DESCRIPTION: [facility] Single View08/04/2020 5:55 am CLINICAL HISTORY: Chest pain COMPARISON: August 03 FINDINGS: No significant change in the bilateral pulmonary opacities. Heart is normal size IMPRESSION: No significant change in the bilateral pneumonia
[2020-08-04] MEDS: SOTALOL HCL 80 MG TAB PO SCH ×4 (09:00→20:55)
[2020-08-04] MEDS: INSULIN -REGULAR HUMAN 50 UNIT/0.5 ML ML SQ SCH ×4 (09:33→20:55)
[2020-08-04] MEDS: THIAMINE HCL 100 MG TABLET PO SCH ×2 (09:35→20:52)
[2020-08-04] MEDS: Enoxaparin 120 MG/0.8 ML SYR SQ SCH ×2 (09:37→20:54)
[2020-08-04] MEDS: ASPIRIN EC 81 MG TAB PO SCH (09:38)
[2020-08-04] MEDS: ZINC SULFATE 220 MG CAP PO SCH (09:38)
[2020-08-04] MEDS: VITAMIN D 1000 UNIT TAB PO SCH (09:38)
[2020-08-04] MEDS: FAMOTIDINE 20 MG/2 ML VIAL IV SCH ×2 (09:38→20:52)
[2020-08-04] MEDS ORDERED: D50W 25 GM/50 ML VIAL IV PRN (14:40)
[2020-08-04] MEDS: ATORVASTATIN 40 MG TAB PO SCH (20:53)
[2020-08-04] MEDS: MELATONIN 5 MG TABLET PO SCH (20:53)
--- NOTE | 2020-08-04 21:11 | PN ---
Date of Progress Note: 08/04/2020 Subjective: The patient was seen this morning for followup. No new complaints, problems reported by him. He was lying in bed in ICU. No new complaints or problems reported. Objective: Vital Signs: Reviewed. HEENT: Unremarkable. Lungs: Clear to auscultation. Heart: Sounds normal. Abdomen: Soft, bowel sounds normal. No guarding, rigidity, tenderness, or distention. Extremities: No leg edema. Laboratory Data: CRP 15.7, ferritin level 555. Sodium 138, potassium 4, chloride 105, bicarb 29, BU N 33, creatinine 0.98, glucose 173. Liver function tests normal. White count 15.1, hemoglobin 15.2, platelets 194. Chest x-ray from today shows no significant change in bilateral pneumonia. Impression: 1.COVID-19 infection. 2.COVID-19 pneumonia. 3.Acute respiratory failure with hypoxia. 4.Hematuria, improved. Plan: We will go ahead and continue current medical management. The patient remains on high-flow ox ygen at 100%. We will continue that and continue current anticoagulation therapy for pulmonary embol ism. The patient is on Lovenox 120 mg subcutaneous injection every 12 hours. We will continue that. Continue IV steroid, which is Solu-Medrol 80 mg every 8 hours and other current medical management. We will continue to follow with Dr. Gaspar and we will see him tomorrow for followup. The patient's gross hematuria problem has resolved at this point. LAXMI/MODL Voice ID: [id number] Report ID: [id number]
[2020-08-04] MEDS ORDERED: ALPRAZOLAM 0.25 MG TABLET PO ONE (23:43)
[2020-08-05] MEDS ORDERED: ALPRAZOLAM 0.25 MG TABLET ONE (00:04)
[2020-08-05] MEDS: METHYLPREDNISOLONE 125 MG INJ IV SCH ×3 (01:07→17:24)
[2020-08-05 05:13] LABS: Absolute Lymphocytes (CBC) 0.3 K/uL (0.7-4.9); Basophils % 0.2 % (0-1.3); Hematocrit 46.7 % (39.6-49.0); Lymphocytes % 1.6 % (15.3-44.8); MPV 8.5 fL (7.6-11.3); RBC Red Blood Cell Count 5.24 M/uL (4.33-5.43)
[2020-08-05 05:26] LABS: Bilirubin Total 0.9 mg/dL (0.2-1.0); C-Reactive Protein 17.5 mg/L (<3.00); Ferritin 603.6 ng/mL (26-388); Potassium 4.4 mmol/L (3.5-5.1); Protein, Total 5.8 g/dL (6.4-8.2)
--- NOTE | 2020-08-05 07:59 | RAD REPORT ---
EXAM DESCRIPTION: [place] Single View08/05/2020 6:08 am CLINICAL HISTORY: Chest pain COMPARISON: August 04 FINDINGS: No significant change in the diffuse bilateral pulmonary opacities. Heart is normal size IMPRESSION: No significant change in the moderate to marked left and [id number] right pulmona ry opacities likely pneumonia
[2020-08-05] MEDS: INSULIN -REGULAR HUMAN 50 UNIT/0.5 ML ML SQ SCH ×4 (08:00→20:07)
[2020-08-05] MEDS: ZINC SULFATE 220 MG CAP PO SCH (08:33)
[2020-08-05] MEDS: THIAMINE HCL 100 MG TABLET PO SCH ×2 (08:34→20:05)
[2020-08-05] MEDS: VITAMIN D 1000 UNIT TAB PO SCH (08:34)
[2020-08-05] MEDS: SOTALOL HCL 80 MG TAB PO SCH ×2 (08:34→20:06)
[2020-08-05] MEDS: FAMOTIDINE 20 MG/2 ML VIAL IV SCH ×2 (08:34→20:08)
[2020-08-05] MEDS: ASPIRIN EC 81 MG TAB PO SCH (08:34)
[2020-08-05] MEDS ORDERED: IVERMECTIN 3 MG TABLET PO ONE ×2 (08:45→10:45)
[2020-08-05] MEDS: Enoxaparin 120 MG/0.8 ML SYR SQ SCH ×2 (09:37→20:08)
--- NOTE | 2020-08-05 17:05 | P.PN ---
Subjective Date of Service: 08/05/20 Chief Complaint: Respiratory failure No change. Still requiring high Fio2 . Feeling okay Physical Examination - Vital Signs Temperature: 97.8 F Blood Pressure: 127/89 Pulse: 63 Respirations: 30 Pulse Ox (%): 87 - Physical Exam General: Alert, Cooperative, Mild distress - Studies Microbiology Data (last 24 hrs): 07/31/20 15:10 Blood - Blood Aerobic Blood Culture - Final No growth in 5 days. 07/31/20 15:10 Blood - Blood Anaerobic Blood Culture - Final No growth in 5 days. 07/31/20 15:00 Blood - Blood Aerobic Blood Culture - Final No growth in 5 days. 07/31/20 15:00 Blood - Blood Anaerobic Blood Culture - Final No growth in 5 days. Assessment & Plan - Problems (Diagnosis) (1) Acute respiratory failure due to severe acute respiratory syndrome coronavirus 2 (SARS-CoV-2) infection Current Visit: Yes Status: Acute Plan: Resp failure. CW ivermectin and Steroids. Pt received Remdesmir last visit CW steroids No change Still on 100% high flow
[2020-08-05] MEDS: ATORVASTATIN 40 MG TAB PO SCH (20:05)
[2020-08-05] MEDS: MELATONIN 5 MG TABLET PO SCH (20:06)
[2020-08-05] MEDS ORDERED: FUROSEMIDE 20 MG/ 2ML VIAL IV ONE (20:28)
[2020-08-05] MEDS ORDERED: FUROSEMIDE 100 MG/10 ML VIAL IV ONE (20:47)
[2020-08-05] MEDS ORDERED: ALPRAZOLAM 0.25 MG TABLET PO PRN (21:00)
[2020-08-05] MEDS ORDERED: RSI MEDICATION KIT IV ONE (22:29)
[2020-08-05] MEDS ORDERED: HALOPERIDOL LACT 5 MG/ML INJ IV PRN (22:47)
[2020-08-05] MEDS ORDERED: MIDAZOLAM HCL 2 MG/2 ML INJ IV PRN (22:47)
[2020-08-05] MEDS ORDERED: propofoL 1,000 MG/100 ML VIAL IV ONE (22:57)
[2020-08-05] MEDS ORDERED: SUCCINYLCHOLINE 20 MG/ML (10 ML) IV ONE (23:17)
[2020-08-05] MEDS ORDERED: NA CHLORIDE 0.9% 1,000 ML ONE (23:23)
[2020-08-06 00:59] LABS: Arterial Blood Carboxyhemoglob 0.9 % (0-1.5); Blood Gas Oxyhemoglobin 80.9 % (94-97); Blood O2 Saturation 82.2 % (92-98.5)
[2020-08-06] MEDS: propofoL 1,000 MG/100 ML VIAL IV PRN ×3 (02:41→14:17)
[2020-08-06] MEDS: FENTANYL CITR 100 MCG/2 ML IV PRN ×2 (02:47→10:05)
[2020-08-06] MEDS: METHYLPREDNISOLONE 125 MG INJ IV SCH (03:37)
[2020-08-06 05:01] LABS: Absolute Lymphocytes (CBC) 0.4 K/uL (0.7-4.9); Basophils % 0.1 % (0-1.3); Hematocrit 46.1 % (39.6-49.0); Lymphocytes % 1.7 % (15.3-44.8); RBC Red Blood Cell Count 5.12 M/uL (4.33-5.43)
[2020-08-06 05:37] LABS: Albumin 1.9 g/dL (3.4-5.0); C-Reactive Protein 48.7 mg/L (<3.00); Ferritin 807.9 ng/mL (26-388); Magnesium 2.7 mg/dL (1.8-2.4); Phosphorus 3.2 mg/dL (2.5-4.9); Potassium 3.9 mmol/L (3.5-5.1); Protein, Total 5.4 g/dL (6.4-8.2)
[2020-08-06 06:09] LABS: Arterial Blood Carboxyhemoglob 0.9 % (0-1.5); Blood Gas Oxyhemoglobin 73.9 % (94-97); Blood O2 Saturation 75.3 % (92-98.5)
[2020-08-06] MEDS ORDERED: VANCOMYCIN 1 GM in NA CHLORIDE 0.9% 250 ML IVPB SCH (07:00)
--- NOTE | 2020-08-06 07:25 | PN ---
Date of Progress Note: 08/05/2020 Subjective: Patient was seen for followup in the morning. He was lying in bed in ICU. When I saw him, he was on high-flow oxygen at 100% and nonrebreather face mask on top of that as his oxygen saturation started to drop overnight. He is not tolerating BiPAP as well and his oxygen saturation runs lower with BiPAP than this combination of oxygen delivery system. His oxygen saturation was around 85%. He appeared little tired compared to before. Denies any other specific complaints. Appetite is fair. Objective: HEENT: Unremarkable. Lungs: Clear to auscultation. No rales. No wheezing. Heart: Sounds normal. Abdomen: Soft. Bowel sounds normal. No guarding, rigidity, tenderness, or distention. Extremities: No leg edema. Laboratory Data: White count 16.2, hemoglobin 15.7, platelets 170. Sodium 138, potassium 4.4, chloride 103, bicarb 31, BUN 30, creatinine 1.04, glucose 192, ferritin 603, CRP 17.5, AST 42, ALT 36, alkaline phosphatase 72. Chest x-ray, no change in bilateral infiltrate pattern. Assessment: 1. COVID-19 infection. 2. COVID-19 pneumonia due to respiratory failure with hypoxia. 3. Leukocytosis secondary to steroid. Plan: Patient is getting high-flow and non-rebreather oxygen as a combination oxygen delivery system right now and still has some problem with his oxygen level. His oxygen saturation drops lower with BiPAP currently and he is more comfortable with high-flow oxygen. So, we will continue high-flow oxygen along with this non-rebreather oxygen that he is currently on. Continue to follow with Dr. Gaspar. We will also go ahead and continue steroid. Patient has received his remdesivir and ivermectin. LAXMI/MODL Voice ID: [id number] Report ID: [id number] BIBI
[2020-08-06] MEDS: INSULIN -REGULAR HUMAN 50 UNIT/0.5 ML ML SQ SCH ×4 (07:30→23:52)
--- NOTE | 2020-08-06 07:31 | RAD REPORT ---
EXAM DESCRIPTION: RAD - Chest Single View - 08/06/2020 7:08 am CLINICAL HISTORY: mech vent, pneumonia COMPARISON: August 05 TECHNIQUE: AP portable chest image was obtained 08/06/2020 7:08 am . FINDINGS: Nasogastric tube appears to have been placed. Tip is in the proximal stomach. Side hole of the tube is at the GE junction. Endotracheal tube is in place in good position mid aortic arch level. Bilateral lung parenchymal opacification has not changed. Cardiomediastinal silhouette is not changed . Trachea is midline. No pneumothorax or enlarging pleural effusion. IMPRESSION: Nasogastric tube in place with the tip in the proximal stomach and side hole of the tubi ng at the GE junction. ET tube in good position mid aortic arch level. Bilateral lung parenchymal opacification is stable.
[2020-08-06] MEDS ORDERED: VANCOMYCIN 1.75 GM in NA CHLORIDE 0.9% 500 ML IVPB SCH (08:00)
[2020-08-06] MEDS: FAMOTIDINE 20 MG/2 ML VIAL IV SCH ×2 (08:48→20:27)
[2020-08-06] MEDS: THIAMINE HCL 100 MG TABLET PO SCH ×2 (08:48→20:26)
[2020-08-06] MEDS: ZINC SULFATE 220 MG CAP PO SCH (08:49)
[2020-08-06] MEDS: VITAMIN D 1000 UNIT TAB PO SCH (08:49)
[2020-08-06] MEDS: PIPER/TAZO/NS 3.375gm 3.375 GM/100 ML BAG IVPB SCH ×2 (08:50→17:00)
[2020-08-06] MEDS: SOTALOL HCL 80 MG TAB PO SCH ×2 (09:00→20:08)
[2020-08-06] MEDS: METHYLPRED NA SUC 250 MG in NA CHLORIDE 0.9% 100 ML IV SCH ×4 (09:00→23:53)
[2020-08-06] MEDS: ASPIRIN EC 81 MG TAB PO SCH (09:00)
[2020-08-06] MEDS ORDERED: POTASSIUM 25 MEQ EFFERV TAB PO ONE (09:00)
[2020-08-06] MEDS ORDERED: METHYLPREDNISOLONE 125 MG INJ IV SCH (09:00)
[2020-08-06] MEDS: Enoxaparin 120 MG/0.8 ML SYR SQ SCH ×2 (09:00→20:09)
[2020-08-06] MEDS ORDERED: AMIODARONE HCL 450 MG in D5W 241 ML IV SCH (09:00)
[2020-08-06] MEDS ORDERED: NOREPINEPHRINE 4 MG in D5W 250 ML IV PRN (09:20)
[2020-08-06 09:21] LABS: Platelet Estimate ADEQ
[2020-08-06 09:22] LABS: Blood Morphology Comment NOT SEEN (NOT SEEN)
[2020-08-06] MEDS: NOREPINEPHRINE 4 MG in D5W 250 ML IV PRN (09:35)
[2020-08-06] MEDS: PANTOPRAZOLE INJ 80 MG in NA CHLORIDE 0.9% 250 ML IV SCH ×2 (10:00→20:00)
[2020-08-06] MEDS ORDERED: CISATRACURIUM INJECTION 2 MG/ML (10 ML Vial) IV PRN (10:53)
[2020-08-06] MEDS ORDERED: NA CHLORIDE 0.9% 250 ML ONE (12:40)
--- NOTE | 2020-08-06 13:10 | RAD REPORT ---
EXAM DESCRIPTION: RAD - Chest Single View - 08/06/2020 12:11 am CLINICAL HISTORY: Et Tube placement COMPARISON: 07/24/2020 FINDINGS: Single frontal view of the chest. Tubes and lines: Endotracheal tube in appropriate position 3 cm above the la. Leads overlie the c hest. Cardiomediastinal silhouette: Stable Lungs: Interval increase in diffuse bilateral airspace opacities with possible small bilateral pleura l effusions. No pneumothorax. Bones: Stable. Upper abdomen: Stable. IMPRESSION: 1. Endotracheal tube in appropriate position. 2. Interval increase in diffuse bilateral airspace opacities concerning for pneumonia with small bila teral pleural effusions. Electronically signed by: Fabien Schilling 08/06/2020 12:17 AM SITE RELIABILITY ENGINEER Due to temporary technical issues with the PACS/Fluency reporting system, reports are being signed by the in house radiologists without review as a courtesy to insure prompt reporting. The interpreting radiologist is fully responsible for the content of the report.
--- NOTE | 2020-08-06 14:31 | P.PN ---
Subjective Date of Service: 08/06/20 Chief Complaint: Respiratory failure Patient's condition deteriorated became more hypoxic unresponsive to high concentrations of oxygen patient had to be intubated last night he still had difficulty maintaining his oxygenation Review of Systems is unable to be obtained Physical Examination - Vital Signs Temperature: 97.1 F Blood Pressure: 102/80 Pulse: 100 Respirations: 31 Pulse Ox (%): 81 - Physical Exam General: Unresponsive Respiratory: Crackles/rales Cardiovascular: No edema, Regular rate/rhythm - Studies Microbiology Data (last 24 hrs): 07/31/20 15:10 Blood - Blood Aerobic Blood Culture - Final No growth in 5 days. 07/31/20 15:10 Blood - Blood Anaerobic Blood Culture - Final No growth in 5 days. 07/31/20 15:00 Blood - Blood Aerobic Blood Culture - Final No growth in 5 days. 07/31/20 15:00 Blood - Blood Anaerobic Blood Culture - Final No growth in 5 days. Assessment & Plan - Problems (Diagnosis) (1) Acute respiratory failure due to severe acute respiratory syndrome coronavirus 2 (SARS-CoV-2) infection Current Visit: Yes Status: Acute Plan: Patient developed a worsening respiratory failure chest x-ray looks worse increasing opacification of the left side patient was intubated yesterday he still continues to remain very hypoxic as not tolerate high levels of peep white count is elevated IV increase the dose of the Solu-Medrol to 250 mg IV q.8 patient is on antibiotics prognosis very poor patient also developed atrial fibrillation low blood pressure and consider starting him on amiodarone once we have a PICC line in place
[2020-08-06 16:28] LABS: Protime INR 1.17
[2020-08-06] MEDS ORDERED: SUCCINYLCHOLINE 20 MG/ML (10 ML) IV ONE (18:58)
[2020-08-06] MEDS ORDERED: ETOMIDATE 20 MG/10 ML VIAL IV ONE (18:58)
--- NOTE | 2020-08-06 19:07 | PN ---
Date of Progress Note: 08/06/2020 Subjective: The patient was seen this morning for followup. The patient's condition deteriorated as of yesterday late evening and the patient's was contacted and details were discussed and the patient may require possible intubation. Later on, his respiratory failure problem continued to get worse. He was on high-flow oxygen 100% plus non-rebreather face mask oxygen, unable to maintain adequate oxygenation. Even after intubation, his oxygenation has been a problem. He still has hypoxia with 100% oxygen on ventilator. This morning when I saw him, his oxygen saturation was 82%, on ventilator with 100% FiO2. Nurse also reported that the patient started to have coffee-ground emesis on the NG tube and he was getting Lovenox for his anticoagulation therapy and we had to stop his Lovenox as of this morning. The last dose of Lovenox he received was last night because of this GI bleed concern. Subsequently, suctioning from endotracheal tube also revealed some evidence of bleeding and fluid that was suctioned out of respiratory tree also had shown evidence of blood in it. Objective: HEENT: Unremarkable. Lungs: Clear to auscultation. Heart: Sounds normal. Abdomen: Soft. Bowel sounds normal. No guarding, rigidity, tenderness, or distention. Extremities: No leg edema. Laboratory Data: Reviewed. Chest x-ray reviewed. Impression: 1. COVID-19 infection. 2. COVID-19 pneumonia. 3. Acute respiratory failure with hypoxia. 4. Upper gastrointestinal bleed. Plan: We will go ahead and continue ventilator support and management per Dr. Gsapar. The patient is on IV steroid and his WBC count has gone up this morning. We will start him on IV antibiotics per order and consult Pharmacy for vancomycin management. Other antibiotic was started was Zosyn. Lovenox was discontinued. IV Protonix drip was started for GI bleed problem. After I saw him, he had atrial fibrillation with rapid ventricular rate and Dr. Gaspar started him on IV amiodarone drip. I did talk to the patient's last night and this morning, and details were discussed with her. The patient's condition is critical, prognosis is guarded, and she was made aware of it. LAXMI/MODL Voice ID: [id number] Report ID: [id number] MTDD
[2020-08-06] MEDS: MELATONIN 5 MG TABLET PO SCH (20:27)
[2020-08-06] MEDS: ATORVASTATIN 40 MG TAB PO SCH (20:27)
[2020-08-07] MEDS: PIPER/TAZO/NS 3.375gm 3.375 GM/100 ML BAG IVPB SCH ×3 (00:39→17:09)
[2020-08-07] MEDS: propofoL 1,000 MG/100 ML VIAL IV PRN ×5 (00:53→22:50)
[2020-08-07] MEDS: VANCOMYCIN 1.75 GM in NA CHLORIDE 0.9% 500 ML IVPB SCH ×2 (01:22→13:19)
[2020-08-07 05:09] LABS: Absolute Lymphocytes (CBC) 0.5 K/uL (0.7-4.9); Basophils % 0.1 % (0-1.3); Lymphocytes % 2.6 % (15.3-44.8); MPV 9.2 fL (7.6-11.3); RBC Red Blood Cell Count 4.77 M/uL (4.33-5.43)
[2020-08-07] MEDS: INSULIN -REGULAR HUMAN 50 UNIT/0.5 ML ML SQ SCH ×3 (05:31→19:31)
[2020-08-07 05:42] LABS: Albumin 1.6 g/dL (3.4-5.0); C-Reactive Protein 97.8 mg/L (<3.00); Ferritin 1201.8 ng/mL (26-388); Magnesium 2.7 mg/dL (1.8-2.4); Potassium 3.8 mmol/L (3.5-5.1); Protein, Total 4.9 g/dL (6.4-8.2)
[2020-08-07] MEDS: NOREPINEPHRINE 4 MG in D5W 250 ML IV PRN ×2 (06:52→20:00)
[2020-08-07 07:44] LABS: Protime INR 1.04
[2020-08-07] MEDS ORDERED: PHENYLEPHRINE 0.5% NOSE 15ML NAS ONE (07:55)
[2020-08-07] MEDS ORDERED: LIDOCAINE VISCOUS 2% SOLN 15 ML UDC ONE (08:10)
[2020-08-07] MEDS: Enoxaparin 120 MG/0.8 ML SYR SQ SCH (09:00)
[2020-08-07] MEDS: FAMOTIDINE 20 MG/2 ML VIAL IV SCH ×2 (09:00→20:22)
[2020-08-07] MEDS: ASPIRIN EC 81 MG TAB PO SCH (09:00)
--- NOTE | 2020-08-07 09:32 | RAD REPORT ---
EXAM DESCRIPTION: RAD - Chest Single View - 08/07/2020 7:04 am CLINICAL HISTORY: covid pneumonia Chest pain. COMPARISON: Chest Single View dated 08/06/2020; Chest Single View dated 08/05/2020; Chest Single View dated 08/05/2020; Chest Single View dated 08/04/2020 FINDINGS: Portable technique limits examination quality. Bilateral moderately severe pulmonary opacities are present, essentially stable since the comparative study. Tip of the ET tube is above the la. Enteric tube descends in the stomach. The heart is up per limit normal size. Subcutaneous emphysema is noted along the base of the neck. IMPRESSION: Stable bilateral pulmonary opacities are seen since comparative study.
--- NOTE | 2020-08-07 10:04 | RAD REPORT ---
EXAM DESCRIPTION: RAD - Abdomen 1 View (KUB) - 08/07/2020 9:10 am CLINICAL HISTORY: Ogt tube placement Pain COMPARISON: No comparisons FINDINGS: Enteric tube coils in the superior aspect of the stomach.
[2020-08-07] MEDS: ZINC SULFATE 220 MG CAP PO SCH (11:45)
[2020-08-07] MEDS: VITAMIN D 1000 UNIT TAB PO SCH (11:45)
[2020-08-07] MEDS: THIAMINE HCL 100 MG TABLET PO SCH ×2 (11:45→20:22)
[2020-08-07] MEDS: METHYLPRED NA SUC 250 MG in NA CHLORIDE 0.9% 100 ML IV SCH ×2 (11:46→17:08)
[2020-08-07] MEDS: PANTOPRAZOLE INJ 80 MG in NA CHLORIDE 0.9% 250 ML IV SCH ×2 (11:47→23:44)
[2020-08-07] MEDS: SOTALOL HCL 80 MG TAB PO SCH ×2 (11:47→20:21)
[2020-08-07] MEDS ORDERED: GLUCAGON 1 MG/VIAL IM PRN (11:58)
--- NOTE | 2020-08-07 12:18 | P.PN ---
Subjective Date of Service: 08/07/20 Chief Complaint: Respiratory failure Patient is not doing well still requiring high concentrations of oxygen recent history of nasal bleed he seems to have stopped right now unable to oxygenate the patient 100% able to barely maintain above 80 Review of Systems is unable to be obtained Physical Examination - Vital Signs Temperature: 98.5 F Blood Pressure: 81/52 Pulse: 108 Respirations: 36 Pulse Ox (%): 86 Assessment & Plan - Problems (Diagnosis) (1) Acute respiratory failure due to severe acute respiratory syndrome coronavirus 2 (SARS-CoV-2) infection Current Visit: Yes Status: Acute Plan: Respiratory failure patient is unresponsive to conventional ventilator changes the saturations are slightly above 80 400% oxygen ferritin levels are very elevated patient's inflammatory markers have worsened blood pressure is low is on Levophed very high doses of steroids patient is also in AFib rate control continue with the high-dose steroids prognosis very poor endotracheal tube in satisfactory position patient has had 3 doses of ivermectin
[2020-08-07] MEDS ORDERED: D50W 25 GM/50 ML VIAL IV PRN (12:22)
[2020-08-07] MEDS: INSULIN GLARGINE 100 UNITS/ML SQ SCH (13:19)
[2020-08-07] MEDS ORDERED: GLUCERNA 1.2 CAL 1,000 ML BOT RTH SCH (15:00)
[2020-08-07] MEDS: FENTANYL CITR 100 MCG/2 ML IV PRN ×2 (17:30→23:39)
[2020-08-07] MEDS ORDERED: FAMOTIDINE 20 MG/2 ML VIAL IV ONE (17:52)
[2020-08-07] MEDS: LORazepam 2 MG/ML VIAL IV PRN ×2 (18:15→23:38)
[2020-08-07] MEDS: ATORVASTATIN 40 MG TAB PO SCH (20:22)
[2020-08-07] MEDS: MELATONIN 5 MG TABLET PO SCH (20:34)
--- NOTE | 2020-08-07 22:05 | PN ---
Date of Progress Note: 08/07/2020 Subjective: The patient was seen this morning for followup and details were discussed with xin sawyer se. The patient was intubated late evening of 08/05/2020 and after that intubation, he had nasogastr ic tube placed, which was inserted from right nostril. Yesterday during the course of day, nurse inf ormed me that she had noted some coffee-ground emesis and there was something noted when I was there in the ICU in the morning, but during the course of day yesterday, nurse informed me that there was s ome presence of fresh blood that was noted at the time of endotracheal tube suctioning. The patient' s Lovenox was discontinued. Yesterday morning, he was getting therapeutic dose of Lovenox, but becau se of this bleeding problem, it was discontinued yesterday morning. So, last dose of Lovenox would h ave been on 08/05/2020. This morning when I talked to ICU nurse, she informed me that during nightti me, the patient had some problem, but bleeding from the left nostril and bleeding from mouth that she had noted every time she would suction and the patient required frequent suctioning. There was no d efinite source of bleeding that we could notice. We do not have any ENT physician available for cons ultation, so we decided to request emergency room physician and Dr. Cottrell was in ER and as per req uest, she did come up to ICU and we discussed details and determined that very likely source of this bleeding is probably from the right nostril and possibility of some trauma due to NG tube insertion i s to be kept in mind. So, the decision was made to remove NG tube and Dr. Cottrell placed Rhino Rock et in his right nostril and nursing staff placed orogastric tube. The patient remains on propofol dr ip and Levophed drip. Objective: Vital Signs: Reviewed. HEENT: Unremarkable. Lungs: Clear to auscultation. Heart: Sounds normal. Abdomen: Soft. Bowel sounds normal. No guarding, rigidity, tenderness, distention. Extremities: Trace leg edema. Laboratory Data: White count 19.8, hemoglobin 14.2, platelets 149. Sodium 140, potassium 3.8, chlor ciera 106, bicarb 29, BUN 34, creatinine 1.27, glucose 214. Ferritin has gone up to 1201 and C-reactiv e protein has gone up to 97.80. Chest x-ray shows bilateral lung opacity, unchanged from prior x-ray . X-ray KUB shows tip of the tube is inside the stomach. Impression: 1.COVID-19 infection. 2.COVID-19 pneumonia. 3.Acute respiratory failure with hypoxia. 4.Atrial fibrillation, paroxysmal. Plan: We will go ahead and continue IV steroid, and we will continue current IV antibiotics, which i s Zosyn and vancomycin. We will start him on tube feeding using diabetic formula and increase rate s lowly as he tolerates. We will not give any anticoagulation therapy at this point because risk of bl eeding is more than the benefit. If by tomorrow, there is no active bleeding and if hemoglobin remai ns relatively stable, then we may consider starting him on heparin 5000 units subcutaneous injection every 12 hours and then over period of next day or 2 days, we will have to decide if we can increase the dose of anticoagulation therapy or not. I did call the patient's and details were discussed with her. Overall, prognosis is poor. We did talk to hospital administration and per family's requ est, a family visit was arranged today considering the patient's poor prognosis. LAXMI/MODL Voice ID: [id number] Report ID: [id number]
[2020-08-08] MEDS ORDERED: NOREPINEPHRINE 4mg/D5W 250mL 4 MG/250 ML BAG IV ONE ×2 (00:01→05:07)
[2020-08-08] MEDS: INSULIN -REGULAR HUMAN 50 UNIT/0.5 ML ML SQ SCH ×5 (00:19→23:57)
[2020-08-08] MEDS: PIPER/TAZO/NS 3.375gm 3.375 GM/100 ML BAG IVPB SCH ×3 (00:20→16:44)
[2020-08-08] MEDS: METHYLPRED NA SUC 250 MG in NA CHLORIDE 0.9% 100 ML IV SCH ×4 (00:20→17:00)
[2020-08-08] MEDS: VANCOMYCIN 1.75 GM in NA CHLORIDE 0.9% 500 ML IVPB SCH (02:49)
[2020-08-08 05:24] LABS: Absolute Lymphocytes (CBC) 0.4 K/uL (0.7-4.9); Basophils % 0.2 % (0-1.3); Hematocrit 47.8 % (39.6-49.0); Lymphocytes % 2.1 % (15.3-44.8); MPV 10.3 fL (7.6-11.3)
[2020-08-08 06:05] LABS: Potassium 4.4 mmol/L (3.5-5.1)
[2020-08-08] MEDS: NA CHLORIDE 0.9% 250 ML IV PRN ×2 (07:14→07:31)
[2020-08-08] MEDS: FAMOTIDINE 20 MG/2 ML VIAL IV SCH ×2 (08:39→20:21)
[2020-08-08] MEDS: FENTANYL CITR 100 MCG/2 ML IV PRN ×2 (08:47→12:33)
[2020-08-08] MEDS: THIAMINE HCL 100 MG TABLET PO SCH ×2 (08:47→20:22)
[2020-08-08] MEDS: ZINC SULFATE 220 MG CAP PO SCH (08:47)
[2020-08-08] MEDS: SOTALOL HCL 80 MG TAB PO SCH ×2 (08:48→20:20)
[2020-08-08] MEDS ORDERED: propofoL 200 MG/20 ML VIAL IV ONE (08:50)
--- NOTE | 2020-08-08 09:45 | PN ---
Date of Progress Note: 08/08/2020 Subjective: The patient was seen this morning for followup. Overnight, nurse was able to place PICC line. He remains on ventilator with 100% FiO2 on propofol drip and Levophed drip. He is also alexei ating tube feeding well as ordered. His oxygen saturation has been a problem, it is ranging between 79%-82%. This morning when I saw him, his breathing was also very rapid that his respiratory rate is between 35-40 per minute. Intake and output records reviewed. Objective: HEENT: Unremarkable, except presence of orogastric tube and endotracheal tube in mouth. The patient is breathing rapidly from his mouth. Lungs: Bilateral equal air entry. Heart: Sounds normal. Abdomen: Soft. Bowel sounds normal. Extremities: Trace leg edema. Skin: Cyanosis of fingertips and toes noted. Laboratory Data: White count 20.6, hemoglobin 15.6, platelets 108. Sodium 138, potassium 4.4, chlor ciera 105, bicarb 26, BUN 45, creatinine 1.77, glucose 249, calcium 6.9, ferritin 1231, CRP 143. Patie nt's ferritin and CRP level are going up. Vancomycin trough level was 20. Impression: 1.COVID-19 infection. 2.COVID-19 pneumonia. 3.Acute respiratory failure with hypoxia. 4.Volume depletion. 5.Acute kidney injury. 6.Thrombocytopenia. 7.Atrial fibrillation. Plan: Patient's condition is deteriorating and is not responding to treatment now. We will discontinue van comycin. Continue steroid and Zosyn as he is currently on. We will give 1 dose of IV fluid bolus. Continue ventilator support per Dr. Gaspar. Await patient's condition this morning. Unfortunately , I expect him to continue to go downhill and do not survive this hospitalization and we will call th e patient's and discuss details with her. We will discontinue heparin because of thrombocytopenia problem. LAXMI/MODL Voice ID: [id number] Report ID: [id number]
[2020-08-08] MEDS: PANTOPRAZOLE INJ 80 MG in NA CHLORIDE 0.9% 250 ML IV SCH ×2 (09:51→18:16)
[2020-08-08] MEDS: INSULIN GLARGINE 100 UNITS/ML SQ SCH (09:57)
[2020-08-08] MEDS: VITAMIN D 1000 UNIT TAB PO SCH (10:01)
--- NOTE | 2020-08-08 10:15 | PN ---
Date of Progress Note: 08/08/2020 Subjective: The patient's was contacted this morning and details were discussed with her regard ing the patient's condition, especially now having renal failure, thrombocytopenia, low oxygen level, cyanosis and the patient's breathing pattern has changed now with rapid labored breathing type of pa ttern that we see and all these signs indicating declining health and condition. In my best medical judgment, the patient is not going to survive this hospitalization and is expected in near futu re. Provided his condition continues to progress like the way I expected to. All those details were discussed with her and she was also advised to notify her children regarding the patient's condition and prognosis as I have explained it to her. We also had opportunity to discuss advance care planni leeann. When I had that discussion with her a few days ago, she had informed me that she wanted everythi ng done including CPR defibrillation in the event of cardiac arrest, but after notifying the patient' s with the patient's current condition and not likely to survive this hospitalization. She has informed me that she does not want any CPR or defibrillation in the event of cardiac arrest, and let the God and nature to take its course. So, we will place order for do not resuscitate in the chart. The patient's was given opportunity to ask any questions and her questions were answered. Time spent today for advanced care planning discussion was 16 minutes. LAXMI/JOSEPH Voice ID: [id number] Report ID: [id number]
[2020-08-08] MEDS: propofoL 200 MG/20 ML VIAL IV PRN ×10 (11:29→23:58)
[2020-08-08] MEDS: LORazepam 2 MG/ML VIAL IV PRN (14:25)
[2020-08-08] MEDS ORDERED: METHYLPREDNISOLONE 125 MG INJ ONE (17:01)
[2020-08-08] MEDS: NOREPINEPHRINE 4 MG in D5W 250 ML IV PRN (18:43)
--- NOTE | 2020-08-08 20:00 | RAD REPORT ---
EXAM DESCRIPTION: RAD - Chest Single View - 08/08/2020 3:15 am CLINICAL HISTORY: 80 years Male, S/P PICC insertion COMPARISON: August 07, 2020 6:14 AM FINDINGS: Right upper extremity PICC has been placed which terminates in the mid SVC in good positio n. Questional tiny left pneumothorax. Subcutaneous emphysema in the left lower neck. There is a linea r opacity in the left upper chest which may represent a chest tube or the medial border of the scapul a. Diffuse interstitial and alveolar opacities throughout the lungs have increased since the previous exam particularly on the right. Cardiac silhouette remains stable. IMPRESSION: Questionable tiny left apical pneumothorax. There may be a left chest tube in place krueger fermín portable technique limits image quality. Please correlate clinically and if needed repeat chest r adiograph. Increasing interstitial and alveolar opacities bilaterally. Right upper extremity PICC has been placed which terminates in good position. Electronically signed by: Denis Kay DO 08/08/2020 4:19 AM PLUSH [employer]ER Due to temporary technical issues with the PACS/Fluency reporting system, reports are being signed by the in house radiologists without review as a courtesy to insure prompt reporting. The interpreting radiologist is fully responsible for the content of the report.
[2020-08-08] MEDS: ATORVASTATIN 40 MG TAB PO SCH (20:20)
[2020-08-08] MEDS: MELATONIN 5 MG TABLET PO SCH (20:20)
[2020-08-09] MEDS: METHYLPRED NA SUC 250 MG in NA CHLORIDE 0.9% 100 ML IV SCH ×3 (00:40→16:21)
[2020-08-09] MEDS: PIPER/TAZO/NS 3.375gm 3.375 GM/100 ML BAG IVPB SCH ×2 (00:40→08:09)
[2020-08-09] MEDS: propofoL 200 MG/20 ML VIAL IV PRN ×3 (02:24→07:20)
[2020-08-09] MEDS: NOREPINEPHRINE 4mg/D5W 250mL 4 MG/250 ML BAG IV ONE ×2 (03:29→03:41)
[2020-08-09] MEDS: PANTOPRAZOLE INJ 80 MG in NA CHLORIDE 0.9% 250 ML IV SCH ×3 (04:36→17:31)
[2020-08-09 05:12] LABS: Absolute Lymphocytes (CBC) 0.3 K/uL (0.7-4.9); Basophils % 0.2 % (0-1.3); Hematocrit 44.3 % (39.6-49.0); Lymphocytes % 1.5 % (15.3-44.8); MPV 10.1 fL (7.6-11.3); RBC Red Blood Cell Count 4.91 M/uL (4.33-5.43)
[2020-08-09 05:41] VITALS: BMI 38.7
[2020-08-09 05:44] LABS: Magnesium 3.1 mg/dL (1.8-2.4); Potassium 4.4 mmol/L (3.5-5.1)
[2020-08-09] MEDS: INSULIN -REGULAR HUMAN 50 UNIT/0.5 ML ML SQ SCH ×3 (06:14→17:21)
[2020-08-09] MEDS: SOTALOL HCL 80 MG TAB PO SCH (08:04)
[2020-08-09] MEDS: INSULIN GLARGINE 100 UNITS/ML SQ SCH (08:05)
[2020-08-09] MEDS: ZINC SULFATE 220 MG CAP PO SCH (08:06)
[2020-08-09] MEDS: THIAMINE HCL 100 MG TABLET PO SCH (08:06)
[2020-08-09] MEDS: VITAMIN D 1000 UNIT TAB PO SCH (08:07)
[2020-08-09] MEDS: FAMOTIDINE 20 MG/2 ML VIAL IV SCH (08:08)
[2020-08-09] MEDS: LORazepam 2 MG/ML VIAL IV PRN ×3 (08:09→19:23)
--- NOTE | 2020-08-09 09:41 | P.PN ---
Subjective Date of Service: 08/09/20 Chief Complaint: Respiratory failure No change in patient's condition he continues to remain hypotensive hypoxic unresponsive on maximum ventilatory support Review of Systems is unable to be obtained Physical Examination - Vital Signs Temperature: 97.6 F Blood Pressure: 120/79 Pulse: 110 Respirations: 30 Pulse Ox (%): 75 - Physical Exam General: Unresponsive Respiratory: Clear to auscultation bilaterally Cardiovascular: Edema Assessment & Plan - Problems (Diagnosis) (1) Acute respiratory failure due to severe acute respiratory syndrome coronav irus 2 (SARS-CoV-2) infection Current Visit: Yes Status: Acute Plan: Patient is currently respiratory failure blood pressure is stable he is in AFib unresponsive white count is declining repeat blood gases chest x-ray shows bilateral infiltrates patient's Levophed is been gradually weaned off renal function no change increase Lantus check serum procalcitonin Dc Zosyn for now chest x-ray consistent with thayer virus pneumonia I have ordered arterial blood gases chest x-ray
[2020-08-09] MEDS: FENTANYL CITR 100 MCG/2 ML IV PRN ×2 (10:14→16:51)
[2020-08-09] MEDS ORDERED: JEVITY 1.2 CAL LIQUID 1,000 ML BOT RTH SCH (12:00)
[2020-08-09 13:39] LABS: Arterial Blood Carboxyhemoglob 0.8 % (0-1.5); Blood Gas Oxyhemoglobin 54.1 % (94-97)
[2020-08-09 16:21] VITALS: O2SAT 72
[2020-08-09 17:26] VITALS: TEMP 97.8
[2020-08-09] MEDS ORDERED: NOREPINEPHRINE 4mg/D5W 250mL 4 MG/250 ML BAG IV ONE (19:20)
[2020-08-09 19:40] VITALS: BP 65/19
[2020-08-10] MEDS ORDERED: INSULIN GLARGINE 100 UNITS/ML SQ SCH (09:00)
--- NOTE | 2020-09-01 22:43 | DS ---
Date of Discharge: 08/09/2020 Disposition: The patient today. Hospital Course: This was a 80-year-old very pleasant male patient, who was admitted to the hospital with COVID-19 illness. Please see dictated H and P for more information. The patient was admitted to the hospital on July 31, 2020 with shortness of breath related to acute respiratory failure wit h hypoxia due to underlying COVID-19 pneumonia infection. CAT scan of the chest per PE protocol show ed a small segmental branch, right-sided pulmonary emboli, extensive airspace opacity greater on the left side compatible with pneumonia. His initial blood gas; pH 7.49, pCO2 35.1, pO2 66.7, saturation 92.9% on 100% FiO2 with BiPAP. The patient was admitted to the hospital. He remained in ICU during this hospital stay and Dr. Gaspar was consulted. The patient normally takes Eliquis at home for h is atrial fibrillation problem. Instead of Eliquis, we gave him Lovenox. He was also given oxygen r eplacement therapy, IV Solu-Medrol, and ivermectin was given to him. During this entire stay, he rem ained in ICU and initially he was on BiPAP and we increased his FiO2 up to 100% and he was maintainin g adequate oxygenation initially. His diabetes was managed with sliding scale insulin per order. He had some gross hematuria, which actually improved. He continued to receive Lovenox for pulmonary em bolism problem. The patient's family was contacted on a frequent basis that is the patient's to give updates. His gross hematuria improved. At one point, he was on high-flow oxygen instead of Bi PAP, maintaining adequate oxygenation and then subsequently his condition started to deteriorate, bec radha more hypoxic. He had leukocytosis, which was thought to be secondary to IV steroid. On top of h igh-flow oxygen, he was also getting oxygen per non-rebreather facemask and that was actually helping his oxygen saturation better than BiPAP. The patient also received IV remdesivir along with oral iv ermectin. With worsening hypoxia and respiratory failure, the patient was intubated and remained on ventilator during last few days of this hospital stay. He also developed upper GI bleed with coffee- ground emesis. He also developed atrial fibrillation with rapid ventricular rate and he was given IV amiodarone too. Empiric antibiotics, Zosyn and vancomycin were given. Subsequently, he developed e pistaxis as nurse informed me that the patient was noted to have bleeding from his nostril and we did not have any ENT available for consultation. So, Dr. Cottrell, emergency room physician was request ed to put a Rhino Rocket, which was removed after 48 hours and we did not notice any recurrence of an y nose bleed problem. The patient became hypotensive and required vasopressor medications. As his c ondition continued to go downhill, we continued to discuss all the details with family member that is the patient's and the patient also developed renal failure, thrombocytopenia. He became more a nd more cyanotic and developed labored breathing. Details were discussed with the patient's and on August 08 when I discussed all these details with worsening condition and very poor prognosis not likely to survive this hospitalization, the patient's informed me that she does not want any further heroic measures and do not resuscitate order was placed in the chart and subsequently the marilu roberto on 08/09/2020. On the day of discharge which is 08/09/2020, I was out of town and Dr. Gaspar was covering this patient in my absence. Final Diagnoses: 1.COVID-19 infection. 2.COVID-19 pneumonia. 3.Acute respiratory failure with hypoxia. 4.Paroxysmal atrial fibrillation. 5.Acute kidney injury. 6.Thrombocytopenia. 7.Upper gastrointestinal bleeding. 8.Pulmonary embolism. 9.Diabetes mellitus. 10.Hyperglycemia, steroid-induced. 11.Epistaxis. LAXMI/MODL Voice ID: [id number] Report ID: [id number]
== END 2020-08-09 21:20 | disposition expired | DRG 208 ==
LOC: ER 14:59 → ERHOLD 20:53 → 3RD-ICU 08-01 20:12
PROVIDERS: ADMIT Internal Medicine; ATTEND Internal Medicine
PROC: 5A1945Z Respiratory Ventilation, 24-96 Consecutive Hours (ICD-10-PCS; principal; 2020-08-05)
PROC: 0BH17EZ Insertion of Endotracheal Airway into Trachea, Via Natural or Artificial Opening (ICD-10-PCS; 2020-08-05)
PROC: 30233L1 Transfusion of Nonautologous Fresh Plasma into Peripheral Vein, Percutaneous Approach (ICD-10-PCS; 2020-08-06)
PROC: 02HV33Z Insertion of Infusion Device into Superior Vena Cava, Percutaneous Approach (ICD-10-PCS; 2020-08-08)
DX: U07.1 COVID-19 (principal); J12.82 Pneumonia due to coronavirus disease 2019; J96.01 Acute respiratory failure with hypoxia; I26.99 Other pulmonary embolism without acute cor pulmonale; K92.2 Gastrointestinal hemorrhage, unspecified; N17.9 Acute kidney failure, unspecified; I48.0 Paroxysmal atrial fibrillation; E78.2 Mixed hyperlipidemia; D69.6 Thrombocytopenia, unspecified; I25.10 Atherosclerotic heart disease of native coronary artery without angina pectoris; E86.9 Volume depletion, unspecified; D72.829 Elevated white blood cell count, unspecified; E09.65 Drug or chemical induced diabetes mellitus with hyperglycemia; T38.0X5A Adverse effect of glucocorticoids and synthetic analogues, initial encounter; R31.0 Gross hematuria; Z66 Do not resuscitate; Z88.5 Allergy status to narcotic agent; Z88.8 Allergy status to other drugs, medicaments and biological substances; Z79.01 Long term (current) use of anticoagulants; Z79.899 Other long term (current) drug therapy; Z90.49 Acquired absence of other specified parts of digestive tract; Z79.52 Long term (current) use of systemic steroids; Z85.46 Personal history of malignant neoplasm of prostate; Z23 Encounter for immunization
CPT/HCPCS: 36415; 36569; 71045; 71275; 74018; 80048; 80053; 80076; 80202; 81003; 81015; 82271; 82728; 82805; 82947; 83605; 83690; 83735; 83880; 83986; 84100; 84132; 84145; 84484; 85025; 85379; 85610; 85730; 86140; 86900; 86901; 87040; 87086; 87088; 90471; 90732; 93005; 94002; 94003; 94660; 94760; 96372; 96374; 99291; C9113; J0330; J1650; J1815; J1940; J2543; J2704; J2920; J2930; J3010; J3370; J3411; J7030; J7040; J7050; J7060; P9059; Q9967